=== PATIENT | female | born 1955 | race Caucasian/White ===

== ENCOUNTER → 2017-03-09 | Outpatient (CLI) | payer OTHER ==
--- NOTE | 2017-03-10 08:44 | MM ---
Reason for exam: screening (asymptomatic). Last mammogram was performed 2 years and 8 months ago. History: Patient is postmenopausal and is nulliparous. Benign stereotactic core biopsy of the left breast, June 29, 2002. Core biopsy of the left breast. 2 excisional biopsies of the left breast. Physical Findings: A clinical breast exam by your physician is recommended on an annual basis and results should be correlated with mammographic findings. MG Screening Mammo w CAD Bilateral CC and MLO view(s) were taken. Prior study comparison: June 26, 2014, bilateral MG screening mammo w CAD. June 26, 2003, bilateral diagnostic mammogram. The breast tissue is heterogeneously dense. This may lower the sensitivity of mammography. Finding: There are stable typically benign calcifications. Previous mammotome biopsy in the right breast. There is no discrete abnormality. No significant changes in finding since June 26, 2014 and June 26, 2003. ASSESSMENT: Benign, BI-RAD 2 RECOMMENDATION: Routine screening mammogram of both breasts in 1 year.
--- NOTE | 2017-03-10 13:41 | BD ---
EXAMINATION TYPE: MG DEXA axial skeleton. DATE OF EXAM: 03/09/2017 COMPARISON: 2001 CLINICAL HISTORY: vitamin d deficiency Height: 5'3 Weight: 148 FRAX RISK QUESTIONS: Alcohol (3 or more units per day): no Family History (Parent hip fracture): no Glucocorticoids (More than 3mos): no (Ex: prednisone, prednisolone, methylprednisolone, dexamethasone, and hydrocortisone). History of Fracture in Adulthood: yes Secondary Osteoporosis: 1. Type 1 Diabetes: no 2. Hyperthyroidism: no 3. Menopause before 45: yes 4. Malnutrition: no 5. Chronic liver disease: no Rheumatoid Arthritis: no Current Tobacco Use: yes RISK FACTORS HISTORY OF: Surgery Wrist (/left): When: age 12 Postmenopausal woman: MEDICATIONS: Additional Medications: Motrin, copd, Additional History: vitamin d deficiency EXAM MEASUREMENTS: Bone mineral densitometry was performed using the [employer] System. Bone mineral density as measured about the Lumbar spine is: ----- L1-L4(G/cm2): 1.084 T Score Values are as follows: ----- L2: -0.8 ----- L3: -0.6 ----- L4: -1.1 ----- L1-L4: -0.8 Bone mineral density has: Increased 2.0% since study of: 05/25/2002 Bone mineral density about the R hip (g/cm2): 0.839 Bone mineral density about the L hip (g/cm2): 0.911 T Score values are as follows: -----R Neck: -1.4 -----L Neck: -0.9 -----R Total: -1.5 -----L Total: -0.8 Bone mineral density has: Decreased -4.3% since study of: 05/25/2002 IMPRESSION: Osteopenia (T Score between -2.5 and -1 as noted by T score values: L4, Rt hip There is slightly increased risk of fracture and the patient may be considered for treatment. Re-Screen 2-5 years. NOTE: T-SCORE=SD OF THE YOUNG ADULT MEAN.
== END | disposition home or self-care (01) ==
LOC: RADMAMWWP 08:18
PROVIDERS: ATTEND Family Medicine
DX: Z12.31 Encounter for screening mammogram for malignant neoplasm of breast (principal); M85.80 Other specified disorders of bone density and structure, unspecified site
CPT/HCPCS: 77080; G0202

== ENCOUNTER → 2017-03-09 | Outpatient (CLI) | payer OTHER ==
--- NOTE | 2017-03-09 09:19 | XR ---
EXAMINATION TYPE: XR chest 2V DATE OF EXAM: 03/09/2017 COMPARISON: NONE HISTORY: COPD and tobacco abuse. Shortness of breath TECHNIQUE: Frontal and lateral views of the chest are obtained. FINDINGS: There is no focal air space opacity, pleural effusion, or pneumothorax seen. There is pulm onary hyperinflation and flattening of the diaphragms on the lateral image. The cardiac silhouette s ize is within normal limits. The osseous structures are intact. Mild degenerative changes are seen of the thoracic spine, glenohumeral joint and acromio clavicular joint. IMPRESSION: 1. No acute cardiopulmonary process. 2. Radiographic sequela of COPD.
== END | disposition home or self-care (01) ==
LOC: RADXRMAIN 09:00
PROVIDERS: ATTEND Family Medicine
DX: J44.9 Chronic obstructive pulmonary disease, unspecified (principal); Z72.0 Tobacco use
CPT/HCPCS: 71020

== ENCOUNTER → 2017-04-14 | Outpatient (CLI) | payer OTHER ==
--- NOTE | 2017-04-14 13:11 | CT ---
EXAMINATION TYPE: CT chest wo con DATE OF EXAM: 04/14/2017 COMPARISON: NONE HISTORY: Patient complains of increasing difficulty breathing. Patient has a history of asthma and CO PD. CT DLP: 499 mGycm. Automated Exposure Control for Dose Reduction was Utilized. TECHNIQUE: CT scan of the thorax is performed without IV contrast. FINDINGS: LUNGS: Moderate centrilobular pulmonary emphysematous changes are seen with architectural disruption of the secondary pulmonary lobules most prominent within the lung apices with a gradient effect for t he lung bases. Solitary right basilar bleb is noted. No focal consolidation, pleural effusion or pneu mothorax is present. Subsegmental lingular atelectasis is seen. No pulmonary mass is identified. MEDIASTINUM: Lack of IV contrast is noted to limit evaluation for mediastinal and especially hilar ad enopathy. Three-vessel coronary artery disease is moderate in degree. There are no definitive greater than 1 cm hilar or mediastinal lymph nodes. No cardiomegaly or pericardial effusion is seen. Ascen ding thoracic aorta is within normal limits of size measuring 3.4 cm. OTHER: Multilevel degenerative change of the thoracic spine is seen, mild to moderate with endplate s clerosis, intervertebral disc space narrowing, and small anterior osteophytes. IMPRESSION: 1. Moderate centrilobular pulmonary emphysema with no focal consolidation, pleural effusion or pneumo thorax. No pulmonary mass. 2. Three-vessel coronary artery atherosclerosis, moderate in degree.
== END | disposition home or self-care (01) ==
LOC: RADCTMAIN 12:39
PROVIDERS: ATTEND Internal Medicine Pulmonary Disease
DX: J43.2 Centrilobular emphysema (principal); I25.10 Atherosclerotic heart disease of native coronary artery without angina pectoris
CPT/HCPCS: 71250

== ENCOUNTER → 2018-02-09 | Outpatient (CLI) | payer OTHER ==
--- NOTE | 2018-02-10 07:52 | US ---
EXAMINATION TYPE: US pelvic limited DATE OF EXAM: 02/09/2018 COMPARISON: NONE CLINICAL HISTORY: N93.9 ABN UTERINE AND VAGINAL BLEEDING. TECHNIQUE: Transabdominal (TA Date of LMP: post menopausal EXAM MEASUREMENTS: Uterus: Surgically absent cm Endometrial Stripe: Surgically absent cm Right Ovary: Surgically absent cm Left Ovary: Surgically absent cm Patient states vaginal bleed after intercourse. 1. Uterus: Surgically absent 2. Endometrium: Surgically absent 3. Right Ovary: Surgically absent 4. Left Ovary: Surgically absent 5. Bilateral Adnexa: wnl 6. Posterior cul-de-sac: no free fluid Vaginal cuff seen and appears normal. No other abnormality noted. IMPRESSION: No discrete sonographic abnormality within the vaginal cuff. Surgical absence of the uter us and ovaries. If there is further concern enhanced MR could be performed.
== END | disposition home or self-care (01) ==
LOC: RADUSWWP 14:50
PROVIDERS: ATTEND Family Medicine
DX: N93.9 Abnormal uterine and vaginal bleeding, unspecified (principal); Z90.710 Acquired absence of both cervix and uterus; Z90.722 Acquired absence of ovaries, bilateral
CPT/HCPCS: 76857

== ENCOUNTER → 2018-03-10 | Outpatient (CLI) | payer OTHER ==
--- NOTE | 2018-03-13 10:18 | MM ---
Reason for exam: screening (asymptomatic). Last mammogram was performed 1 year ago. History: Patient is postmenopausal and is nulliparous. Benign stereotactic core biopsy of the left breast, June 29, 2002. Core biopsy of the left breast. 2 excisional biopsies of the left breast. Taking estrogen for 1 month. Taking progesterone for 1 month. Physical Findings: A clinical breast exam by your physician is recommended on an annual basis and results should be correlated with mammographic findings. MG 3D Screening Mammo W/Cad Bilateral CC and MLO view(s) were taken. Prior study comparison: March 09, 2017, bilateral MG screening mammo w CAD. June 26, 2014, bilateral MG screening mammo w CAD. The breast tissue is heterogeneously dense. This may lower the sensitivity of mammography. Stable previously sampled calcifications central left breast. No significant changes when compared with prior studies. ASSESSMENT: Benign, BI-RAD 2 RECOMMENDATION: Routine screening mammogram of both breasts in 1 year.
== END | disposition home or self-care (01) ==
LOC: RADMAMWWP 10:01
PROVIDERS: ATTEND Family Medicine
DX: Z12.31 Encounter for screening mammogram for malignant neoplasm of breast (principal)
CPT/HCPCS: 77063; 77067

== ENCOUNTER 2019-01-22 14:27 | Emergency (ER) | payer OTHER ==
[2019-01-22 15:53] VITALS: BP 126/80; PULSE 65; RESP 18; TEMP 97.6
--- NOTE | 2019-01-22 15:53 | ED ---
Skin/Abscess/FB HPI - General Chief complaint: Extremity Injury, Upper Stated complaint: Hand/FInger Injury Time Seen by Provider: 01/22/19 15:34 Source: patient, family Mode of arrival: ambulatory Limitations: no limitations - History of Present Illness Initial comments: 63-year-old female presenting today for chief complaint of right third digit pain. Patient states that she shook her hand and then heard a pop in her third right digit. Patient states there has been mild swelling at the site, no warmth no significant redness, denies fever, flu like symptoms. Patient denies limitation of ROM. Remaining ROS (-). Upon arrival patient appears well, no signs of acute distress. - Related Data Allergies Allergy/AdvReac Type Severity Reaction Status Date / Time albuterol Allergy Rash/Hives Verified 01/22/19 15:55 citric acid Allergy Swelling Verified 01/22/19 15:55 codeine Allergy Rash/Hives Verified 01/22/19 15:55 Influenza Virus Vaccines Allergy Unknown Verified 01/22/19 15:55 Penicillins Allergy Rash/Hives Verified 01/22/19 15:55 aspirin AdvReac Nausea & Verified 01/22/19 15:55 Vomiting surgical metal Allergy Rash/Hives Uncoded 01/22/19 15:55 Review of Systems ROS Statement: Those systems with pertinent positive or pertinent negative responses have been documented in the HPI. ROS Other: All systems not noted in ROS Statement are negative. 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 cyst removed from left wrist Past Psychological History: No Psychological Hx Reported Smoking Status: Current every day smoker Past Alcohol Use History: None Reported Past Drug Use History: Marijuana General Exam - General Exam Comments Initial Comments: General: The patient is awake and alert, in no distress, and does not appear acutely ill. Eye: +3 mm pupils are equal, round and reactive to light, extra-ocular movements are intact. No nystagmus. There is normal conjunctiva bilaterally. No signs of icterus. Ears, nose, mouth and throat: There are moist mucous membranes and no oral lesions. Neck: The neck is supple, there is no tenderness or JVD. Cardiovascular: There is a regular rate and rhythm. No murmur, rub or gallop is appreciated. Respiratory: Lungs are clear to auscultation, respirations are non-labored, breath sounds are equal. No wheezes, stridor, rales, or rhonchi. Musculoskeletal: Normal ROM, no tenderness. Strength 5/5. Sensation intact. Radial pulses equal bilaterally 2+. Neurological: A&O x 3. CN II-XII intact, There are no obvious motor or sensory deficits. Coordination appears grossly intact. Speech is normal. Skin: Skin is warm and dry and no rashes. Mild soft tissue welling over the MTP joints of the right third digit. No pain with range of motions the MTP DIP and PIP joints. slight tenderness to palpation of the MTP directly. No fusiform swelling of fingers, capillary refill < 2 seconds. Psychiatric: Cooperative, appropriate mood & affect, normal judgment. Limitations: no limitations Course Vital Signs 01/22/19 15:47 Temperature 97.6 F Pulse Rate 65 Respiratory 18 Rate Blood Pressure 126/80 O2 Sat by Pulse 98 Oximetry Medical Decision Making - Medical Decision Making This a 63-year-old female presenting for right hand swelling after shaking vigorously. No evidence of infection. Mild soft tissue swelling. Negative osseous injury on imaging studies. Patient was instructed to apply ice and elevate the area and monitor for redness increasing swelling fevers or flu like symptoms. Patient is to follow-up closely primary care provider or return as discussed. Patient discharged appearing well agreeable to care for discharge at this time Disposition Clinical Impression: Finger pain, Finger strain Disposition: HOME SELF-CARE Condition: Good Instructions (If sedation given, give patient instructions): Musculoskeletal Pain (ED) Additional Instructions: Please use medication as discussed. Please follow-up with family doctor in the next 2 days. If areas becomes red, increasing pain/swelling or fever/flu like symptoms, decreased range of motion, please return to ER. Please return to emergency room if the symptoms increase or worsen or for any other concerns. Is patient prescribed a controlled substance at d/c from ED?: No Referrals: Svetlana Mosley MD [Primary Care Provider] - 1-2 days Time of Disposition: 16:48
--- NOTE | 2019-01-22 16:29 | XR ---
EXAMINATION TYPE: XR hand complete RT DATE OF EXAM: 01/22/2019 COMPARISON: None HISTORY: Pain third metacarpal phalangeal joint TECHNIQUE: Three-view right hand FINDINGS: Joint spaces appear preserved. There is soft tissue swelling over the metacarpal phalangeal joint spaces dorsally. No acute fractures are evident. IMPRESSION: 1. Soft tissue swelling over the dorsal metacarpal phalangeal joint spaces.
--- NOTE | 2019-01-25 01:39 | CDI ---
Documentation Clarification OP Dear Charity ADKINS, LATRICE Please specify the site of finger strain(extensor or flexor) to code the appropriate ICD. Thank you, Jolly Robbins Diagnostic Technologist If you have any question, Please contact architectural project manager at [phone] [facility]
== END 2019-01-22 17:05 | disposition home or self-care (01) ==
LOC: EC 14:27
DX: S56.113A Strain of flexor muscle, fascia and tendon of right middle finger at forearm level, initial encounter (principal); F17.200 Nicotine dependence, unspecified, uncomplicated; Z88.0 Allergy status to penicillin; Z88.7 Allergy status to serum and vaccine; Z88.5 Allergy status to narcotic agent; Z88.8 Allergy status to other drugs, medicaments and biological substances; Z88.6 Allergy status to analgesic agent; Z91.048 Other nonmedicinal substance allergy status; X50.9XXA Other and unspecified overexertion or strenuous movements or postures, initial encounter
CPT/HCPCS: 99283

== ENCOUNTER → 2019-07-04 | Outpatient (CLI) | payer OTHER | END | disposition home or self-care (01) | LOC: RADMRIMAIN 11:05 | PROVIDERS: ATTEND Family Medicine | DX: Z53.9 Procedure and treatment not carried out, unspecified reason (principal) ==

== ENCOUNTER → 2020-05-14 | Outpatient (CLI) | payer MEDICARE ==
--- NOTE | 2020-05-16 11:07 | MR ---
EXAMINATION TYPE: MR shoulder LT wo con DATE OF EXAM: 05/14/2020 COMPARISON: Plain film 05/31/2018 HISTORY: Left shoulder pain TECHNIQUE: Multiplanar, multisequence imaging of the left shoulder is performed without contrast. FINDINGS: Rotator Cuff: Intact Acromioclavicular Joint: There is arthropathy change present, spurring causes some mass effect on the musculotendinous junction of supraspinatus. There is a distal acromial spur. Glenohumeral Joint: There is marked arthropathy change. Remodeling of the bony glenoid is present wit h articular cartilage loss, marginal spurring, subchondral geode formation is suspected Labrum: Some increased signal present within the posterior labrum be related to degenerative change, difficult to exclude labral tear inferiorly, there is some irregularity suspected, coronal image #16, 15 Biceps Tendon: The long head of biceps is in normal location within bicipital groove. Some fluid sign al is present along the long head of biceps tendon Bone marrow signal: Pseudocysts are present within the humeral head. Reactive marrow signal changes a re present within the bony glenoid. Other: There is a joint effusion present. Fluid signal also present along the subscapularis musculote ndinous junction level IMPRESSION: Osteoarthritis as described.
== END | disposition home or self-care (01) ==
LOC: RADMRIMAIN 19:34
PROVIDERS: ATTEND Family Medicine
DX: M19.012 Primary osteoarthritis, left shoulder (principal)

== ENCOUNTER → 2020-05-22 | Outpatient (CLI) | payer MEDICARE ==
[2020-05-22 08:26] LABS: HCT 41.2 % (34.0-46.0); HGB 13.9 gm/dL (11.4-16.0); MCH 31.2 pg (25.0-35.0); MCHC 33.8 g/dL (31.0-37.0); MCV 92.3 fL (80.0-100.0); Mean Platelet Volume 7.4; Platelet Count 337 k/uL (150-450); RBC 4.47 m/uL (3.80-5.40); RDW 12.3 % (11.5-15.5); WBC 8.7 k/uL (3.8-10.6)
[2020-05-22 08:31] LABS: Appearance,Urine Clear (Clear); Bilirubin,Urine Negative (Negative); Blood,Urine Negative (Negative); Color,Urine Yellow; Glucose,Urine (UA) Negative (Negative); Ketones,Urine Negative (Negative); Leukocyte Esterase,Urine Negative (Negative); Nitrite,Urine Negative (Negative); PH, Urine 5.5 (5.0-8.0); Protein,Urine Negative (Negative); Specific Gravity,Urine 1.017 (1.001-1.035); Urobilinogen,Urine <2.0 mg/dL (<2.0)
[2020-05-22 08:33] LABS: INR 0.9 (<1.2); Partial Thromboplastin Time 24.3 sec (22.0-30.0); Prothrombin Time 9.3 sec (9.0-12.0)
[2020-05-22 08:36] LABS: Albumin 3.8 g/dL (3.5-5.0); Calcium 9.3 mg/dL (8.4-10.2); Potassium 3.8 mmol/L (3.5-5.1); Total Bilirubin 0.4 mg/dL (0.2-1.3); Total Protein 6.2 g/dL (6.3-8.2)
== END | disposition home or self-care (01) ==
LOC: LABPAT 07:30
PROVIDERS: ATTEND Orthopaedic Surgery Sports Medicine
DX: Z01.818 Encounter for other preprocedural examination (principal); Z01.812 Encounter for preprocedural laboratory examination; Z79.01 Long term (current) use of anticoagulants
CPT/HCPCS: 36415; 80053; 81003; 85027; 85610; 85730; 87070; 93005

== ENCOUNTER → 2020-05-22 | Outpatient (CLI) | payer MEDICARE ==
--- NOTE | 2020-05-22 09:06 | CT ---
EXAMINATION TYPE: CT shoulder LT wo con DATE OF EXAM: 05/22/2020 COMPARISON: MRI 05/14/2020 HISTORY: 64-year-old female chronic pain. Injury 10 yrs ago TECHNIQUE: Contiguous axial scanning of the left shoulder without IV contrast. Coronal and sagittal r econstructions performed. CT DLP: 272.2 mGycm Automated exposure control for dose reduction was used. FINDINGS: Moderate centrilobular emphysema. Moderate to severe degenerative change at the AC joint with joint space narrowing and marginal spurri ng. Severe degenerative change at the glenohumeral joint with bony remodeling of the humeral head, margin al spurring, subchondral sclerosis within the glenoid. There is some biconcave configuration to the glenoid. Along the anterior half, there is neutral gleno id version but with a prominent anterior spur projecting laterally. Along the posterior half of the g lenoid, there is presently 10 degrees of glenoid retroversion. Mild diffuse thinning of glenoid bone stock. There is some superior and posterior subluxation of the glenohumeral joint but no atrophy of the rota tor cuff musculature identified. IMPRESSION: 1. SEVERE LEFT GLENOHUMERAL JOINT OA WITH MILD BONY REMODELING OF THE HUMERAL HEAD AND PROMINENT ZABRINA INAL SPURRING. 2. BICONCAVE CONFIGURATION TO THE GLENOID. THE ANTERIOR HALF MAINTAINS A NEUTRAL GLENOID VERSION BUT HAS A PROMINENT ANTERIOR SPUR PROJECTING LATERALLY, POSSIBLY SEQUELA OF PRIOR HEALED FRACTURE. THE PO STERIOR HALF SHOWS 10 DEGREES OF GLENOID RETROVERSION. OVERALL MILD THINNING OF THE GLENOID BONE STOC K. 3. POSTERIOR and SUPERIOR JOINT SUBLUXATION THOUGH WITH PRESERVED ROTATOR CUFF MUSCLE BULK. 4. MODERATE TO SEVERE AC JOINT OA.
== END | disposition home or self-care (01) ==
LOC: RADCTMAIN 06:32
PROVIDERS: ATTEND Orthopaedic Surgery Sports Medicine
DX: M19.012 Primary osteoarthritis, left shoulder (principal); M25.712 Osteophyte, left shoulder; M25.812 Other specified joint disorders, left shoulder; S43.002A Unspecified subluxation of left shoulder joint, initial encounter

== ENCOUNTER 2020-06-19 09:49 | Inpatient (IN) | payer MEDICARE ==
[2020-06-16 11:13] VITALS: BMI 26.5
[~2020-06-19 09:49] MED LIST: ACETAMINOPHEN TAB 500 MG TAB PO PRN; GABAPENTIN 300 MG CAP PO PRN; MELOXICAM 7.5 MG TAB PO PRN; ONDANSETRON 4 MG/2 ML VIAL IVP PRN; TRANEXAMIC ACID 1,000 MG in SODIUM CHLORIDE 0.9% 100 ML IVPB PRN
[2020-06-19] MEDS: LACTATED RINGERS 1,000 ML IV SCH ×3 (10:37→21:29)
[2020-06-19] MEDS ORDERED: LIDOCAINE 1% (10MG/ML) FOR IV START INTRADERMA ONE (10:37)
[2020-06-19] MEDS: fentaNYL (PF) 50 MCG/ML 2 ML AMP IV PRN ×2 (10:56→11:02)
[2020-06-19] MEDS: MIDAZOLAM 2 MG/2 ML VIAL IV PRN ×2 (10:56→11:01)
[2020-06-19] MEDS ORDERED: PROCHLORPERAZINE SUPPOSITORY 25 MG SUPP RECTAL PRN (11:22)
[2020-06-19] MEDS ORDERED: ONDANSETRON 4 MG/2 ML VIAL IVP PRN (11:22)
[2020-06-19] MEDS ORDERED: METOCLOPRAMIDE 5 MG/ML 2 ML VIAL IVP PRN (11:22)
[2020-06-19] MEDS ORDERED: HYDROmorphone 0.5 MG/0.5 ML SYRINGE IVP PRN (11:22)
[2020-06-19] MEDS ORDERED: hydrOXYzine pamoate 25 MG CAP PO PRN (11:22)
[2020-06-19] MEDS ORDERED: diphenhydrAMINE 25 MG CAP PO PRN (11:22)
[2020-06-19] MEDS ORDERED: SENNOSIDES-DOCUSATE SODIUM 1 EACH TAB PO PRN (11:22)
[2020-06-19] MEDS ORDERED: HYDROmorphone 0.2 MG/1 ML SYRINGE IVP PRN (11:22)
[2020-06-19] MEDS ORDERED: HYDROmorphone 1 MG/ML 1 ML SYRINGE IVP PRN (11:22)
[2020-06-19] MEDS ORDERED: HYDROcodone/APAP 7.5-325MG 1 EACH TAB PO PRN (11:28)
[2020-06-19] MEDS ORDERED: SUCCINYLCHOLINE CHLORIDE 100 MG/5 ML SYR IV ONE (11:39)
[2020-06-19] MEDS ORDERED: ROPIVACAINE 5 MG/ML 30 ML VIAL ONE (11:39)
[2020-06-19] MEDS ORDERED: fentaNYL (PF) 50 MCG/ML 2 ML AMP ONE (11:39)
[2020-06-19] MEDS ORDERED: NEOSTIGMINE 1 MG/ML 10 ML VIAL ONE (11:39)
[2020-06-19] MEDS ORDERED: PROPOFOL 10 MG/ML 20 ML VIAL IV ONE (11:39)
[2020-06-19] MEDS ORDERED: MIDAZOLAM 2 MG/2 ML VIAL ONE (11:39)
[2020-06-19] MEDS ORDERED: ROCURONIUM 10 MG/ML (10 ML VIAL) IV ONE (11:39)
[2020-06-19] MEDS ORDERED: GLYCOPYRROLATE 0.2 MG/ML 2 ML VIAL ONE (11:39)
[2020-06-19] MEDS ORDERED: PHENYLEPHRINE-0.9% NACL SYG 1 MG/10 ML SYRINGE ONE (11:39)
[2020-06-19] MEDS ORDERED: ceFAZolin 1,000 MG in SODIUM CHLORIDE 0.9% 1,000 ML IRRIGATION ONE (11:45)
[2020-06-19] MEDS ORDERED: VANCOMYCIN 1,000 MG VIAL MISCELLANE ONE (12:31)
[2020-06-19] MEDS ORDERED: LACTATED RINGERS 1,000 ML IV ONE (12:56)
--- NOTE | 2020-06-19 13:05 | P.ANPRN ---
Procedure Note - Anesthesia - Nerve Block Performed Left Interscalene Time Out Performed: Yes (10:55) Date of Procedure: 06/19/20 Procedure Start Time: :55 Procedure Stop Time: 11:08 Location of Patient: PreOp Indication: Acute Post-Operative Pain, Requested by Surgeon (Dr Marquez) Sedation Type: Sedate with meaningful contact maintained Preparation: Sterile Prep Position: Supine Catheter: None Needle Types: Pajunk Needle Gauge: Other (see comment) (22g) Ultrasound used to visualize needle placement: Yes Ultrasound used to observe medication spread: Yes Injectate: 0.5% Ropivacaine (see comment for volume) (20cc) Blood Aspirated: No Pain Paresthesia on Injection Noted: No Resistance on Injection: Normal Image Stored and Saved: Yes Events: Uneventful and Well Tolerated
--- NOTE | 2020-06-19 13:42 | XR ---
EXAMINATION TYPE: XR shoulder limited LT DATE OF EXAM: 06/19/2020 COMPARISON: CT left shoulder 12/05/2019 HISTORY: Left shoulder chronic pain, history of remote injury. TECHNIQUE: Single view of left shoulder is obtained immediately postoperatively. FINDINGS: Metallic hardware from total left shoulder arthroplasty is now present. Position satisfacto ry. [place] osseous structures are demineralized. Surrounding subcutaneous gas noted. Percutaneous shae inage catheter is present. Left basilar atelectatic change incidentally noted. IMPRESSION: As above.
[2020-06-19] MEDS ORDERED: diphenhydrAMINE 50 MG/ML 1 ML VIAL IVP ONE (14:21)
[2020-06-19] MEDS ORDERED: ACETAMINOPHEN TAB 500 MG TAB PO PRN (18:00)
[2020-06-19] MEDS ORDERED: diazePAM 5 MG TAB PO PRN (18:00)
[2020-06-19] MEDS ORDERED: diphenhydrAMINE 25 MG CAP PO SCH (21:00)
[2020-06-19] MEDS ORDERED: TEMAZEPAM 15 MG CAP PO PRN (21:00)
[2020-06-19] MEDS ORDERED: MONTELUKAST 10 MG TAB PO SCH (21:00)
[2020-06-19] MEDS: NICOTINE POLACRILEX 2 MG GUM BUCCAL PRN (21:23)
--- NOTE | 2020-06-20 00:41 | OP ---
OPERATIVE REPORT DATE OF PROCEDURE: 06/19/2020. SURGEON: Sandro Marquez MD. EMBEDDED HARDWARE ENGINEER: Ankur POLLARD. PREOPERATIVE DIAGNOSIS: Left shoulder osteoarthrosis. POSTOPERATIVE DIAGNOSIS: 1. Left shoulder osteoarthrosis. 2. Left shoulder full-thickness rotator cuff tear. OPERATION: Left reverse total shoulder arthroplasty. ANESTHESIA: General, endotracheal. ESTIMATED BLOOD LOSS: 100 mL. DRAINS: One deep drain. COMPLICATIONS: None apparent. DISPOSITION: Postanesthesia care unit. INDICATIONS: Lawanda Berkowitz is a very pleasant 64-year-old female with longstanding left shoulder pain. Workup including x-rays revealed advanced osteoarthrosis of the left shoulder. At this point, it is felt that she has failed conservative management and would like to proceed with operative intervention. The risks of procedure were discussed with her in detail. These risks included, but were not limited to risk of infection, nerve damage, bleeding, pain, instability in the shoulder, loosening of the implants and deep infection. There is also small risk of deep vein thrombosis which could lead to fatal pulmonary embolism. The patient understood the risks. All of her questions were answered to her satisfaction. An appropriate informed consent was obtained. DESCRIPTION OF THE PROCEDURE: Patient identified in the preoperative holding area. Surgical sites marked by both the patient and myself. She was given 2 grams of Ancef IV for prophylactic purposes. She was then transferred to the operative suite where she was placed supine on the operating room table. General anesthetic was then administered, dosed per the anesthesia department without apparent complication. Examination under anesthesia was then performed of the left shoulder. She had full passive elevation 120 degrees. External rotation at the side was to 20 degrees. The patient's left upper extremity was then prepped and draped in usual sterile fashion. Standard surgical pause was undertaken to ensure that we were operating on the correct site and that appropriate preoperative antibiotics had been given. All staff in the room agreement were in agreement and we proceeded. The acromion AC joint, clavicle and coracoid were marked surgical pen. A planned incision starting at the level of the clavicle and extending distally over the deltopectoral interval approximately 1 cm lateral to the coracoid was marked with surgical pen. The incision was then made with a 10 blade scalpel. Dissection was carried down sharply to the deltoid fascia. The deltopectoral interval was identified at the level of the clavicle. A small band retractor was then placed onto the proximal deltoid. I then released the deltoid fascia on the lateral aspect of the cephalic vein. The vein was marked. The vein was left in its bed medially. The cephalic vein was protected throughout the entire case. I then identified the clavipectoral fascia. This was incised proximally to the level of the coracoacromial ligament. The coracoacromial ligament was left intact. I then used my finger to spread the interval between the conjoint tendon and the subscapularis. I felt for the axillary nerve which was readily palpable. I then cleared the subacromial and subdeltoid spaces of bursal and scar tissue. I then utilized a Gama retractor to hold the deltoid and expose the humeral head. I then proceeded with release of the subscapularis, anterior inferior shoulder capsule. The rotator cuff was inspected. There was a full-thickness tear of the supraspinatus. The rotator interval was identified. The course of the biceps tendon was also identified. I then released the rotator interval. It was released at the base of the coracoid and then out laterally. The subscapularis and the capsule were released intratendinously. The subscapularis and capsule release extended distally in a lazy-S fashion approximately 1 cm medial to the biceps tendon. I then continued to release the capsule along the inferior neck in a vertical fashion to approximately the 6 o'clock position. Great care was taken to ensure the capsule was always visualized as it was released as to avoid injuring the axillary nerve. I then brought the [employer] [facility] director with the arm externally rotated and abducted. I continued to release the capsule inferomedially to the 4 o'clock position. The inferior osteophytes were now removed as well. This was done with a rongeur. I then proceeded with preparation of the humerus. I removed all the goat's zuleta osteophytes. I then removed the subchondral plate from superior aspect of the humeral head utilizing a large rongeur. I then utilized a starting reamer to gain access to the humeral canal. This was 1 cm medial to the rotator cuff insertion and 1 cm posterior to the bicipital groove. I then prepared the humeral canal with hand reaming. I started with a 6 mm reamer and increasing incrementally until firm resistance was encountered. This was at 11 mm. The reamer handle was then left in place. I then utilized a humeral resection guide set at 30 degrees of retrotorsion. The cutting block was then set approximately 1-2 mm above the insertion of the rotator cuff. I then proceed to osteotomized the head with an oscillating saw. I removed the resection guide and then completed the osteotomy. I then proceeded with trial stem placement. Trial size 11 was then broached in the canal starting with a 6 mm broach up to an 11 mm broach. The 11 mm trial broach was then left in place. At this point, I did release the biceps tendon. This was tenotomized at the level of superior labrum. A bone hook was then used to pull the humerus out laterally. I inspected the joint for any loose bodies. The condition of the cuff was again inspected. There was a full-thickness tear of the rotator cuff. I made a decision at this point in time to proceed with a reverse total shoulder arthroplasty. The Bhattman retractor was then placed on the posterior glenoid rim. The arm was placed in approximately 70-80 degrees of abduction and in slight flexion on a Trinh stand. I then proceeded to remove the hypertrophic labrum to definitively identify the actual glenoid. I then utilized a mini base plate starting guide. The pin was inserted in the central aspect of the glenoid with approximately 10 degrees of inferior tilt. I then reamed utilizing the mini base plate reamer. This was taken down and minimal reaming as possible was done as to preserve subchondral bone stock in the glenoid. I then inserted the mini base plate. I placed a 25 mm central screw. This screw had excellent purchase in bone and I was able to rotate the scapula through the screwdriver when it was fully seated. I then placed the peripheral locking screws. The superior screw was 15 mm. Inferior screw was 25 mm. The posterior screw was 15 mm. I did not fill the anterior screw hole. I then opened a 36 mm glenosphere. This was offset inferiorly. It was then impacted onto the dried Benitez taper of the mini base plate. The glenosphere had been securely seated. I then proceeded to trial. I utilized a standard base plate and a standard poly. This was a fairly difficult reduction. The shoulder was very stable. There was no anterior or posterior impingement with range of motion. The conjoint tendon was of appropriate tension. The shoulder was then redislocated. The wound was thoroughly irrigated with sterile saline solution with antibiotic added. I had the provider relations representative open a real 11 Biomet mini stem, a standard base plate and a standard polyethylene. The stem was then impacted in the humeral canal and 30 degrees of retrotorsion. The Benitez taper was dried. The poly was clicked onto the base plate on the back table and then was impacted on the dry Benitez taper of the humeral stem. The shoulder was then reduced. Again it was fairly difficult reduction. It was very stable throughout a full range of motion. There was no impingement noted. Subscapularis was quite attenuated. I did not repair the subscapularis. The wound was then thoroughly irrigated with sterile saline solution with antibiotic added. The axillary nerve was felt for and was readily palpable and preserved. A deep drain was then brought out superiorly away from the incision. Approximately 500 mg of vancomycin powder was placed deep into the wound. The deltopectoral interval was then closed with 0 Vicryl interrupted suture. Again the subcutaneous tissue was thoroughly irrigated with sterile saline solution with antibiotic added. The remaining 500 mg of vancomycin powder was then placed subcutaneously. The subcutaneous tissue was then closed with 2-0 Vicryl interrupted suture. The skin was closed with a running 3-0 Quill suture. Dermabond was applied to the incision. Sterile compressive dressing was then applied. The patient's left upper extremity placed into a standard sling. All sponge and needle counts were deemed correct prior to closure. The patient tolerated procedure without apparent complication. She was transferred to the recovery room in stable condition. MMODL / IJN: [id number] /
[2020-06-20] MEDS: IPRATROPIUM-ALBUTEROL 3 ML NEB INHALATION SCH ×3 (01:37→12:00)
[2020-06-20] MEDS: HYDROcodone/APAP 7.5-325MG 1 EACH TAB PO PRN ×3 (01:39→16:14)
[2020-06-20] MEDS: LACTATED RINGERS 1,000 ML IV SCH ×2 (04:16→10:52)
[2020-06-20] MEDS ORDERED: IBUPROFEN 800 MG TAB PO PRN (06:00)
[2020-06-20] MEDS: NICOTINE POLACRILEX 2 MG GUM BUCCAL PRN (08:27)
[2020-06-20 08:33] VITALS: BP 111/71; PULSE 80; RESP 17; TEMP 99.5
[2020-06-20 08:40] LABS: Basophils % (A) 0 %; Eosinophils # (A) 0.1 k/uL (0-0.7); Eosinophils % (A) 1 %; HCT 38.1 % (34.0-46.0); HGB 12.9 gm/dL (11.4-16.0); Lymphocytes # (A) 2.1 k/uL (1.0-4.8); Lymphocytes % (A) 22 %; MCH 30.8 pg (25.0-35.0); MCHC 33.9 g/dL (31.0-37.0); MCV 90.7 fL (80.0-100.0); Mean Platelet Volume 7.3; Monocytes # (A) 0.6 k/uL (0-1.0); Monocytes % (A) 6 %; Neutrophils % (A) 71 %; Platelet Count 321 k/uL (150-450); RDW 12.9 % (11.5-15.5); WBC 9.9 k/uL (3.8-10.6)
[2020-06-20] MEDS ORDERED: ASCORBIC ACID 500 MG TAB PO SCH (09:00)
[2020-06-20] MEDS ORDERED: LORATADINE-PSEUDOEPH 5-120 MG 1 EACH TAB.ER.12H PO SCH (09:00)
[2020-06-20] MEDS ORDERED: LISINOPRIL-HCTZ 10-12.5 MG 1 EACH TAB PO SCH (09:00)
--- NOTE | 2020-06-20 14:02 | P.HPIM ---
History of Present Illness H&P Date: 06/20/20 Patient is a 64-year-old female patient of Dr. Mosley, who was admitted to [facility] by Dr. Sandro Marquez and underwent left reverse total shoulder arthroplasty, patient was admitted to surgical floor postprocedure, medical consultation was requested while hospitalized. Patient has a known history of osteoarthritis, rotator cuff tear, COPD, hypertension, and hyperlipidemia. On review of systems patient is alert and oriented 3 in no distress is complaining of pain in the surgical site otherwise she denies any complaints there is no fever or chills no headache or dizziness no chest pain no shortness of breath no cough no nausea or vomiting no abdominal pain no diarrhea no blood in the stools no burning with urination no frequency or urgency and no hematuria. 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 cyst removed from left wrist, benign tumor removed left eye, 5 tumors removed left breast(lumpectomy), abdominal surgeries to removed 8 tumors and left fallopian tube Past Anesthesia/Blood Transfusion Reactions: No Reported Reaction Past Psychological History: Anxiety Smoking Status: Current every day smoker Past Alcohol Use History: None Reported Additional Past Alcohol Use History / Comment(s): smokes < 1 PPD, has smoked for 50 yrs Past Drug Use History: Marijuana Additional Drug Use History / Comment(s): daily use - Past Family History Father Family Medical History: Cancer Additional Family Medical History / Comment(s): lung Medications and Allergies Home Medications Medication Instructions Recorded Confirmed Type Acetaminophen [Acetaminophen 8 1,300 mg PO BID PRN 06/16/20 06/19/20 History Hour] Ergocalciferol [Vitamin D2] 50,000 unit PO QMONTHLY 06/16/20 06/19/20 History Ibuprofen [Motrin] 800 mg PO BID PRN 06/16/20 06/19/20 History Ipratropium/Albuterol Sulfate 1 puff INHALATION QID 06/16/20 06/19/20 History [Combivent Respimat Inhaler] Lisinopril-Hctz 10-12.5 mg 1 tab PO DAILY 06/16/20 06/19/20 History [Zestoretic 10-12.5] Loratadine-Pseudoeph 10-240 mg 1 tab PO DAILY 06/16/20 06/19/20 History [Claritin-D 24 Hour] Montelukast [Singulair] 10 mg PO HS 06/16/20 06/19/20 History Vitamin C/Biotin [Hair, Skin and 2 tab PO DAILY 06/16/20 06/19/20 History Nails] diazePAM [Valium] 5 mg PO QID PRN 06/16/20 06/19/20 History diphenhydrAMINE HCL [Benadryl] 25 mg PO HS 06/16/20 06/19/20 History estradioL [Estrace] 0.5 mg VAGINAL SUWE 06/16/20 06/19/20 History Doxycycline Hyclate 100 mg PO BID #10 tab 06/19/20 Rx Docusate [Colace] 100 mg PO BID #60 capsule 06/20/20 Rx traMADol HCL [Ultram] 50 mg PO Q4HR PRN #42 tab 06/20/20 Rx Allergies Allergy/AdvReac Type Severity Reaction Status Date / Time Penicillins Allergy Severe Vomiting Verified 06/19/20 10:16 albuterol Allergy Rapid Verified 06/19/20 10:16 Heart Rate citric acid Allergy Swelling Verified 06/19/20 10:16 codeine Allergy Rash/Hives/ Verified 06/19/20 10:16 vomiting silver Allergy Unknown Verified 06/19/20 10:16 aspirin AdvReac Nausea & Verified 06/19/20 10:16 Vomiting dial soap Allergy Severe Rash/Hives Uncoded 06/19/20 10:16 fragrance Allergy Severe Rash/Hives Uncoded 06/19/20 10:16 surgical metal Allergy Rash/Hives Uncoded 06/19/20 10:16 Physical Exam Vitals: Vital Signs Temp Pulse Pulse Resp BP Pulse Ox 06/20/20 08:00 99.5 F 80 17 111/71 94 L 06/20/20 01:33 99.8 F H 98 16 117/69 92 L 06/19/20 19:17 98.9 F 66 18 110/70 94 L 06/19/20 19:09 18 06/19/20 17:14 98.2 F 77 17 128/75 91 L 06/19/20 16:00 62 18 100/66 99 06/19/20 15:31 62 18 104/59 98 06/19/20 15:00 75 18 121/58 97 06/19/20 14:31 63 18 103/65 98 06/19/20 14:15 61 18 90/50 92 L 06/19/20 14:00 55 L 16 88/55 97 06/19/20 13:45 50 L 16 92/55 98 06/19/20 13:22 97.0 F L 62 10 L 98/54 96 Intake and Output 06/19/20 06/20/20 06/20/20 22:59 06:59 14:59 Intake Total 500 Output Total 120 120 Balance 500 -120 -120 Intake: IV 500 Output: Drainage 120 120 Left Shoulder 120 120 Other: Voiding Method Toilet Toilet # Voids 3 3 Weight 68 kg In general patient is alert and oriented 3 in no apparent distress HEENT head normocephalic and atraumatic Neck is supple no JVD no goiter no lymphadenopathy Chest exam reveals a few scattered rhonchi no wheezing Cardiac exam reveals regular heart sounds S1 and S2 no gallops no murmurs Abdomen is soft nontender no organomegaly with normal bowel sounds Extremity exam reveals no edema no cyanosis or clubbing Neurological examination reveals no gross focal deficit Results CBC & Chem 7: 06/20/20 07:23 Thrombosis Risk Factor Assmnt - Choose All That Apply Any of the Below Risk Factors Present?: Yes Each Factor Represents 1 point: Obesity (BMI >25) Other Risk Factors: Yes Each Risk Factor Represents 2 Points: Age 61-74 years Thrombosis Risk Factor Assessment Total Risk Factor Score: 3 Thrombosis Risk Factor Assessment Level: Moderate Risk Assessment and Plan Plan: 1. Left shoulder osteoarthritis and rotator cuff tear status post left reverse total shoulder arthroplasty 2. Underlying history of hypertension 3. Underlying history of hyperlipidemia 4. Underlying history of COPD 5. Underlying history of tobacco use Patient was seen and examined during this admission, home medications reviewed and reordered Patient was counseled to quit smoking Will follow during this admission for medical management
--- NOTE | 2020-06-20 16:09 | P.DS ---
Providers Date of admission: 06/19/20 09:49 Expected date of discharge: 06/20/20 Attending physician: Sandro Marquez Consults: 06/19/20 11:22 Consult Physician Routine Consulting Provider: Rivas Watkins Consult Reason/Comments: post op med management Do you want consulting provider notified?: Yes Primary care physician: Svetlana Mosley - Discharge Diagnosis(es) (1) Osteoarthritis of left shoulder Patient was admitted to the OR on 06/19/2010/05/2019 to undergo a left total shoulder arthroplasty. She had failed conservative measures as an outpatient and desired to proceed with elective surgery after given informed consent. She underwent the above procedure which she tolerated well without complication. Postoperative hospital course has remained without complication. On day of discharge she is afebrile, vital signs stable, labs within acceptable ranges, tolerating by mouth meds and diet, voiding without difficulty, positive flatus, denies abdominal pain or calf pain, pain is controlled on oral pain medication and has no new complaints. Wound is benign, neurovascular status is intact, calves are soft and nontender, abdomen soft and nontender. Review of systems is negative for numbness, tingling, fever, chills, chest pain, shortness of breath, nausea, vomiting, dizziness, headaches, slurred speech or other. Current Visit: Yes Status: Acute Procedures: Left TSA Patient Condition at Discharge: Good Plan - Discharge Summary Discharge Rx Participant: No New Discharge Prescriptions: New Doxycycline Hyclate 100 mg PO BID #10 tab Docusate [Colace] 100 mg PO BID #60 capsule traMADol HCL [Ultram] 50 mg PO Q4HR PRN #42 tab PRN Reason: Pain HYDROcodone/APAP 7.5-325MG [[place] 7.5-325] 1 - 2 each PO Q6HR PRN #42 tab PRN Reason: Pain No Action Ipratropium/Albuterol Sulfate [Combivent Respimat Inhaler] 1 puff INHALATION QID estradioL [Estrace] 0.5 mg VAGINAL SUWE diazePAM [Valium] 5 mg PO QID PRN PRN Reason: Anxiety diphenhydrAMINE HCL [Benadryl] 25 mg PO HS Vitamin C/Biotin [Hair, Skin and Nails] 2 tab PO DAILY Montelukast [Singulair] 10 mg PO HS Ergocalciferol [Vitamin D2] 50,000 unit PO QMONTHLY Loratadine-Pseudoeph 10-240 mg [Claritin-D 24 Hour] 1 tab PO DAILY Lisinopril-Hctz 10-12.5 mg [Zestoretic 10-12.5] 1 tab PO DAILY Ibuprofen [Motrin] 800 mg PO BID PRN PRN Reason: Pain Acetaminophen [Acetaminophen 8 Hour] 1,300 mg PO BID PRN PRN Reason: Pain Discharge Medication List Acetaminophen [Acetaminophen 8 Hour] 1,300 mg PO BID PRN 06/16/20 [History] Ergocalciferol [Vitamin D2] 50,000 unit PO QMONTHLY 06/16/20 [History] Ibuprofen [Motrin] 800 mg PO BID PRN 06/16/20 [History] Ipratropium/Albuterol Sulfate [Combivent Respimat Inhaler] 1 puff INHALATION QID 06/16/20 [History] Lisinopril-Hctz 10-12.5 mg [Zestoretic 10-12.5] 1 tab PO DAILY 06/16/20 [History] Loratadine-Pseudoeph 10-240 mg [Claritin-D 24 Hour] 1 tab PO DAILY 06/16/20 [History] Montelukast [Singulair] 10 mg PO HS 06/16/20 [History] Vitamin C/Biotin [Hair, Skin and Nails] 2 tab PO DAILY 06/16/20 [History] diazePAM [Valium] 5 mg PO QID PRN 06/16/20 [History] diphenhydrAMINE HCL [Benadryl] 25 mg PO HS 06/16/20 [History] estradioL [Estrace] 0.5 mg VAGINAL SUWE 06/16/20 [History] Doxycycline Hyclate 100 mg PO BID #10 tab 06/19/20 [Rx] Docusate [Colace] 100 mg PO BID #60 capsule 06/20/20 [Rx] HYDROcodone/APAP 7.5-325MG [[place] 7.5-325] 1 - 2 each PO Q6HR PRN #42 tab 06/20/20 [Rx] traMADol HCL [Ultram] 50 mg PO Q4HR PRN #42 tab 06/20/20 [Rx] Follow up Appointment(s)/Referral(s): Svetlana Mosley MD [Primary Care Provider] - 06/26/20 11:15 am Sandro Marquez MD [STAFF PHYSICIAN] - 07/01/20 1:30 pm Patient Instructions/Handouts: Shoulder Arthroplasty (DC) Activity/Diet/Wound Care/Special Instructions: Keep wound clean and dry Take meds as directed Follow-up with Dr. Marquez in office non Weight bear, maintain sling May shower in 3 days if no bleeding Discharge Disposition: HOME WITH HOME HEALTH SERVICES
[2020-07-17] MEDS ORDERED: ERGOCALCIFEROL 50,000 UNIT CAP PO SCH (09:00)
== END 2020-06-20 16:35 | disposition home or self-care (01) | DRG 483 ==
LOC: 2ORMAIN 09:49 → 4SSUR 16:46
PROVIDERS: ADMIT Orthopaedic Surgery Sports Medicine; ATTEND Orthopaedic Surgery Sports Medicine
PROC: 0RRK00Z Replacement of Left Shoulder Joint with Reverse Ball and Socket Synthetic Substitute, Open Approach (ICD-10-PCS; principal; 2020-06-19 11:40)
DX: M19.012 Primary osteoarthritis, left shoulder (principal); E78.5 Hyperlipidemia, unspecified; J43.9 Emphysema, unspecified; M75.122 Complete rotator cuff tear or rupture of left shoulder, not specified as traumatic; I10 Essential (primary) hypertension; F41.9 Anxiety disorder, unspecified; F17.210 Nicotine dependence, cigarettes, uncomplicated; Z71.6 Tobacco abuse counseling; Z79.890 Hormone replacement therapy; Z79.899 Other long term (current) drug therapy; Z97.3 Presence of spectacles and contact lenses; Z90.710 Acquired absence of both cervix and uterus; Z87.42 Personal history of other diseases of the female genital tract; Z90.89 Acquired absence of other organs; Z87.01 Personal history of pneumonia (recurrent); Z90.49 Acquired absence of other specified parts of digestive tract; Z87.19 Personal history of other diseases of the digestive system; Z98.890 Other specified postprocedural states; Z88.5 Allergy status to narcotic agent; Z88.8 Allergy status to other drugs, medicaments and biological substances; Z91.048 Other nonmedicinal substance allergy status; Z88.0 Allergy status to penicillin; Z88.2 Allergy status to sulfonamides
CPT/HCPCS: 64415; 76942; 85025; 88300

== ENCOUNTER → 2020-07-21 | Outpatient (CLI) | payer MEDICARE ==
--- NOTE | 2020-07-21 13:20 | BD ---
EXAMINATION TYPE: Axial Bone Density DATE OF EXAM: 07/21/2020 COMPARISON: 03/09/2017 CLINICAL HISTORY: 64-year-old female postmenopausal screening Height: 5 FT 2 1/5 IN Weight: 148 FRAX RISK QUESTIONS: Alcohol (3 or more units per day): NO Family History (Parent hip fracture): NO Glucocorticoids (More than 3mos): NO (Ex: prednisone, prednisolone, methylprednisolone, dexamethasone, and hydrocortisone). History of Fracture in Adulthood: YES Secondary Osteoporosis: 1. Type 1 Diabetes: NO 2. Hyperthyroidism: NO 3. Menopause before 45: YES 4. Malnutrition: NO 5. Chronic liver disease: NO Rheumatoid Arthritis: NO Current Tobacco Use: YES RISK FACTORS HISTORY OF: Family History of Osteoporosis: NO Active: YES Diet low in dairy products/other sources of calcium: NO Postmenopausal woman: TOTAL HYST AGE 17 Take estrogen and/or progesterone medications: TOOK HRT FROM AGE [age] Lost more than 2 inches in height since high school: NO MEDICATIONS: Prednisone or other steroids: YES How Long: APPROX 15 YEARS Additional Medications: MOTRIN 800, SINGULAIR, COMBIVENT, LISINOPRIL, Additional History: CYST REMOVED FROM LEFT WRIST AGE 12, LEFT SHOULDER REPLACEMENT JUN 2020 EXAM MEASUREMENTS: Bone mineral densitometry was performed using the my[employer]kin System. Bone mineral density as measured about the Lumbar spine is: ----- L1-L4(G/cm2): 1.138 T Score Values are as follows: ----- L2: -0.4 ----- L3: 0.1 ----- L4: -0.3 ----- L1-L4: -0.4 Bone mineral density has: INCREASED 7.2 % since study of: 2017 Bone mineral density about the R hip (g/cm2): 0.829 Bone mineral density about the L hip (g/cm2): 0.893 T Score values are as follows: -----R Neck: -1.5 -----L Neck: -1.0 -----R Total: -1.5 -----L Total: -0.9 Bone mineral density has: % PERCENT CHANGE % since study of: 2017 IMPRESSION: Osteopenia (T Score between -2.5 and -1). There is slightly increased risk of fracture and the patient may be considered for treatment. Re-Screen 2-5 years. NOTE: T-SCORE=SD OF THE YOUNG ADULT MEAN.
--- NOTE | 2020-07-23 14:43 | MM ---
Reason for exam: screening (asymptomatic). Last mammogram was performed 2 years and 4 months ago. History: Patient is postmenopausal and is nulliparous. Benign stereotactic core biopsy of the left breast, June 29, 2002. Core biopsy of the left breast. 2 excisional biopsies of the left breast. Taking estrogen for 1 month. Taking progesterone for 1 month. Physical Findings: A clinical breast exam by your physician is recommended on an annual basis and results should be correlated with mammographic findings. MG 3D Screening Mammo W/Cad Bilateral CC and MLO view(s) were taken. Prior study comparison: March 10, 2018, bilateral MG 3d screening mammo w/cad. March 09, 2017, bilateral MG screening mammo w CAD. The breast tissue is heterogeneously dense. This may lower the sensitivity of mammography. Previous mammotome biopsy in the left breast. There is chronic nodularity in the left breast. Stable 6 o'clock regional calcifications on the left. No significant changes when compared with prior studies. ASSESSMENT: Benign, BI-RAD 2 RECOMMENDATION: Routine screening mammogram of both breasts in 1 year.
== END | disposition home or self-care (01) ==
LOC: RADMAMWWP 09:06
PROVIDERS: ATTEND Family Medicine
DX: Z12.31 Encounter for screening mammogram for malignant neoplasm of breast (principal); M85.80 Other specified disorders of bone density and structure, unspecified site; Z78.0 Asymptomatic menopausal state
CPT/HCPCS: 77063; 77067; 77080

== ENCOUNTER 2021-01-05 15:39 | Inpatient (IN) | payer MEDICARE, OTHER ==
[2021-01-05] MEDS ORDERED: SODIUM CHLORIDE 0.9% 1,000 ML IV STA (16:51)
[2021-01-05] MEDS ORDERED: ONDANSETRON 4 MG/2 ML VIAL IVP STA (17:10)
[2021-01-05] MEDS ORDERED: MORPHINE SULFATE 4 MG/ML SYRINGE IVP STA (17:52)
--- NOTE | 2021-01-05 17:57 | ED ---
Abdominal Pain HPI - General Chief Complaint: Abdominal Pain Stated Complaint: Abd pain Time Seen by Provider: 01/05/21 16:51 Source: patient, EMS Mode of arrival: EMS Limitations: no limitations - History of Present Illness Initial Comments: Lawanda Berkowitz is a 65-year-old female presents to ER today for evaluation of nausea, vomiting, abdominal cramping and bright red blood in stool. Patient reports that she woke this morning around 5 AM began having diarrhea. She states that she's had some bright red blood in the stool. She states that she did do: G uarded test in the recent month and was advised on Tuesday that it was normal and she did not have to repeat in 3 years. Despite this patient developed a bright red blood per rectum today. She's also been nauseated and had multiple episodes of what she describes as heavy bile vomiting. She did have a bloody nose after vomiting and then had another episode of vomiting that had blood in it however this may have been swallowed blood. - Related Data Home Medications Medication Instructions Recorded Confirmed Acetaminophen [Acetaminophen 8 1,300 mg PO BID PRN 06/16/20 06/19/20 Hour] Ergocalciferol [Vitamin D2] 50,000 unit PO QMONTHLY 06/16/20 06/19/20 Ibuprofen [Motrin] 800 mg PO BID PRN 06/16/20 06/19/20 Ipratropium/Albuterol Sulfate 1 puff INHALATION QID 06/16/20 06/19/20 [Combivent Respimat Inhaler] Lisinopril-Hctz 10-12.5 mg 1 tab PO DAILY 06/16/20 06/19/20 [Zestoretic 10-12.5] Loratadine-Pseudoeph 10-240 mg 1 tab PO DAILY 06/16/20 06/19/20 [Claritin-D 24 Hour] Montelukast [Singulair] 10 mg PO HS 06/16/20 06/19/20 Vitamin C/Biotin [Hair, Skin and 2 tab PO DAILY 06/16/20 06/19/20 Nails] diazePAM [Valium] 5 mg PO QID PRN 06/16/20 06/19/20 diphenhydrAMINE HCL [Benadryl] 25 mg PO HS 06/16/20 06/19/20 estradioL [Estrace] 0.5 mg VAGINAL SUWE 06/16/20 06/19/20 Previous Rx's Medication Instructions Recorded Doxycycline Hyclate 100 mg PO BID #10 tab 06/19/20 Docusate [Colace] 100 mg PO BID #60 capsule 06/20/20 HYDROcodone/APAP 7.5-325MG [Toney 1 - 2 each PO Q6HR PRN #42 tab 06/20/20 7.5-325] traMADol HCL [Ultram] 50 mg PO Q4HR PRN #42 tab 06/20/20 Allergies Allergy/AdvReac Type Severity Reaction Status Date / Time Penicillins Allergy Severe Vomiting Verified 01/05/21 15:41 albuterol Allergy Rapid Verified 01/05/21 15:41 Heart Rate citric acid Allergy Swelling Verified 01/05/21 15:41 codeine Allergy Rash/Hives/ Verified 01/05/21 15:41 vomiting silver Allergy Unknown Verified 01/05/21 15:41 aspirin AdvReac Nausea & Verified 01/05/21 15:41 Vomiting dial soap Allergy Severe Rash/Hives Uncoded 01/05/21 15:41 fragrance Allergy Severe Rash/Hives Uncoded 01/05/21 15:41 surgical metal Allergy Rash/Hives Uncoded 01/05/21 15:41 Review of Systems ROS Statement: Those systems with pertinent positive or pertinent negative responses have been documented in the HPI. ROS Other: All systems not noted in ROS Statement are negative. 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 cyst removed from left wrist, LEFT SHOULDER REPLACEMENT Past Anesthesia/Blood Transfusion Reactions: No Reported Reaction Past Psychological History: No Psychological Hx Reported Smoking Status: Current every day smoker Past Alcohol Use History: None Reported Past Drug Use History: Marijuana - Past Family History Father Family Medical History: Cancer Additional Family Medical History / Comment(s): lung General Exam - General Exam Comments Initial Comments: Physical Exam GENERAL: Patient is well-developed and well-nourished. Patient is nontoxic and well-hydrated and is in no distress. HENT: Normocephalic, Atraumatic. EYES: PERRL, EOMI PULMONARY: Unlabored respirations. No audible rales rhonchi or wheezing was noted. CARDIOVASCULAR: There is a regular rate and rhythm without any murmurs gallops or rubs. ABDOMEN: Diffuse tenderness SKIN: Skin is clear with no lesions or rashes and otherwise unremarkable. : Deferred Bright red blood per rectum, no melena NEUROLOGIC: Patient is alert and oriented x3. Moving all extremities spontaneously MUSCULOSKELETAL: Normal extremities with adequate strength and full range of motion. No lower extremity swelling or edema. No calf tenderness. PSYCHIATRIC: Normal psychiatric evaluation. Limitations: no limitations Course Vital Signs 01/05/21 15:41 Temperature 98 F Pulse Rate 80 Respiratory 18 Rate Blood Pressure 140/82 O2 Sat by Pulse 97 Oximetry Medical Decision Making - Medical Decision Making Patient was seen and evaluated history is obtained from the patient Labs and imaging were ordered Labs were relatively unremarkable, mild leukocytosis, mild lactic acidosis [facility] provided a stool sample while in the emergency department which was grossly bloody, bright red blood IV fluids were ordered CT scan revealed mild colitis Patient agreeable to plan for admission for IV fluid resuscitation, antibiotics and observation for hematochezia Dr. Watkins accepts the admission - Lab Data Result diagrams: 01/05/21 16:59 01/05/21 16:59 Lab Results 01/05/21 01/05/21 01/05/21 Range/Units 16:59 16:59 16:59 WBC 12.8 H (3.8-10.6) k/uL RBC 4.37 (3.80-5.40) m/uL Hgb 14.0 (11.4-16.0) gm/dL Hct 39.0 (34.0-46.0) % MCV 89.3 (80.0-100.0) fL MCH 32.0 (25.0-35.0) pg MCHC 35.8 (31.0-37.0) g/dL RDW 12.6 (11.5-15.5) % Plt Count 372 (150-450) k/uL MPV 8.0 Neutrophils % 88 % Lymphocytes % 8 % Monocytes % 2 % Eosinophils % 1 % Basophils % 1 % Neutrophils # 11.2 H (1.3-7.7) k/uL Lymphocytes # 1.1 (1.0-4.8) k/uL Monocytes # 0.3 (0-1.0) k/uL Eosinophils # 0.1 (0-0.7) k/uL Basophils # 0.1 (0-0.2) k/uL Sodium 138 (137-145) mmol/L Potassium 4.0 (3.5-5.1) mmol/L Chloride 105 (98-107) mmol/L Carbon Dioxide 27 (22-30) mmol/L Anion Gap 6 mmol/L BUN 24 H (7-17) mg/dL Creatinine 0.55 (0.52-1.04) mg/dL Est GFR (CKD-EPI)AfAm >90 (>60 ml/min/1.73 sqM) Est GFR (CKD-EPI)NonAf >90 (>60 ml/min/1.73 sqM) Glucose 111 H (74-99) mg/dL Plasma Lactic Acid Jayy (0.7-2.0) mmol/L Calcium 8.8 (8.4-10.2) mg/dL Total Bilirubin 0.4 (0.2-1.3) mg/dL AST 21 (14-36) U/L ALT 11 (4-34) U/L Alkaline Phosphatase 79 (38-126) U/L Troponin I (0.000-0.034) ng/mL Total Protein 6.3 (6.3-8.2) g/dL Albumin 4.1 (3.5-5.0) g/dL Lipase 179 (23-300) U/L Urine Color Yellow Urine Appearance Clear (Clear) Urine pH 6.0 (5.0-8.0) Ur Specific [place] 1.020 (1.001-1.035) Urine Protein Negative (Negative) Urine Glucose (UA) Negative (Negative) Urine Ketones Trace H (Negative) Urine Blood Small H (Negative) Urine Nitrite Negative (Negative) Urine Bilirubin Negative (Negative) Urine Urobilinogen <2.0 (<2.0) mg/dL Ur Leukocyte Esterase Negative (Negative) Urine RBC 13 H (0-5) /hpf Urine WBC <1 (0-5) /hpf Ur Squamous Epith Cells <1 (0-4) /hpf Urine Mucus Few H (None) /hpf 01/05/21 01/05/21 Range/Units 16:59 16:59 WBC (3.8-10.6) k/uL RBC (3.80-5.40) m/uL Hgb (11.4-16.0) gm/dL Hct (34.0-46.0) % MCV (80.0-100.0) fL MCH (25.0-35.0) pg MCHC (31.0-37.0) g/dL RDW (11.5-15.5) % Plt Count (150-450) k/uL MPV Neutrophils % % Lymphocytes % % Monocytes % % Eosinophils % % Basophils % % Neutrophils # (1.3-7.7) k/uL Lymphocytes # (1.0-4.8) k/uL Monocytes # (0-1.0) k/uL Eosinophils # (0-0.7) k/uL Basophils # (0-0.2) k/uL Sodium (137-145) mmol/L Potassium (3.5-5.1) mmol/L Chloride (98-107) mmol/L Carbon Dioxide (22-30) mmol/L Anion Gap mmol/L BUN (7-17) mg/dL Creatinine (0.52-1.04) mg/dL Est GFR (CKD-EPI)AfAm (>60 ml/min/1.73 sqM) Est GFR (CKD-EPI)NonAf (>60 ml/min/1.73 sqM) Glucose (74-99) mg/dL Plasma Lactic Acid Jayy 2.2 H* (0.7-2.0) mmol/L Calcium (8.4-10.2) mg/dL Total Bilirubin (0.2-1.3) mg/dL AST (14-36) U/L ALT (4-34) U/L Alkaline Phosphatase (38-126) U/L Troponin I <0.012 (0.000-0.034) ng/mL Total Protein (6.3-8.2) g/dL Albumin (3.5-5.0) g/dL Lipase (23-300) U/L Urine Color Urine Appearance (Clear) Urine pH (5.0-8.0) Ur Specific [place] (1.001-1.035) Urine Protein (Negative) Urine Glucose (UA) (Negative) Urine Ketones (Negative) Urine Blood (Negative) Urine Nitrite (Negative) Urine Bilirubin (Negative) Urine Urobilinogen (<2.0) mg/dL Ur Leukocyte Esterase (Negative) Urine RBC (0-5) /hpf Urine WBC (0-5) /hpf Ur Squamous Epith Cells (0-4) /hpf Urine Mucus (None) /hpf Disposition Clinical Impression: Colitis, BRBPR (bright red blood per rectum) Disposition: ADMITTED IP TO THIS HOSP Condition: Stable Is patient prescribed a controlled substance at d/c from ED?: No Referrals: Svetlana Mosley MD [Primary Care Provider] - 1-2 days
[2021-01-05 18:28] LABS: Basophils # (A) 0.1 k/uL (0-0.2); Basophils % (A) 1 %; Eosinophils # (A) 0.1 k/uL (0-0.7); Eosinophils % (A) 1 %; Lymphocytes # (A) 1.1 k/uL (1.0-4.8); Lymphocytes % (A) 8 %; MCHC 35.8 g/dL (31.0-37.0); MCV 89.3 fL (80.0-100.0); Monocytes # (A) 0.3 k/uL (0-1.0); Monocytes % (A) 2 %; Neutrophils # (A) 11.2 k/uL (1.3-7.7); Neutrophils % (A) 88 %; Platelet Count 372 k/uL (150-450); RBC 4.37 m/uL (3.80-5.40); RDW 12.6 % (11.5-15.5); WBC 12.8 k/uL (3.8-10.6)
[2021-01-05 18:32] LABS: Appearance,Urine Clear (Clear); Bilirubin,Urine Negative (Negative); Blood,Urine Small (Negative); Color,Urine Yellow; Glucose,Urine (UA) Negative (Negative); Ketones,Urine Trace (Negative); Leukocyte Esterase,Urine Negative (Negative); Mucus,Urine Few /hpf; Nitrite,Urine Negative (Negative); Protein,Urine Negative (Negative); RBC,Urine 13 /hpf (0-5); Squamous Epithelial Cell,Urine <1 /hpf (0-4); Urobilinogen,Urine <2.0 mg/dL (<2.0); WBC,Urine <1 /hpf (0-5)
[2021-01-05 18:41] LABS: ALT 11 U/L (4-34); AST 21 U/L (14-36); African American GFR (CKD) >90 (>60 ml/min/1.73 sqM); Albumin 4.1 g/dL (3.5-5.0); Alkaline Phosphatase 79 U/L (38-126); Anion Gap 6 mmol/L; Blood Urea Nitrogen 24 mg/dL (7-17); Calcium 8.8 mg/dL (8.4-10.2); Carbon Dioxide 27 mmol/L (22-30); Chloride 105 mmol/L (98-107); Glucose 111 mg/dL (74-99); Lipase 179 U/L (23-300); Non-African American GFR(CKD) >90 (>60 ml/min/1.73 sqM); Sodium 138 mmol/L (137-145); Total Bilirubin 0.4 mg/dL (0.2-1.3); Total Protein 6.3 g/dL (6.3-8.2)
--- NOTE | 2021-01-05 19:20 | CT ---
EXAMINATION TYPE: CT abdomen pelvis w con DATE OF EXAM: 01/05/2021 COMPARISON: None HISTORY: Abdominal pain, vomiting and diarrhea. CT DLP: 854.8 mGycm Automated exposure control for dose reduction was used. CONTRAST: Performed with IV Contrast, patient injected with 100ml mL of Isovue 300. Images obtained from the diaphragm to the floor the pelvis with contrast. Lung bases are clear of infiltrate. There is mild pulmonary emphysema. There is no pleural effusion. Heart size is normal. There is no pericardial effusion. Liver is intact. The bile ducts are not dilated. Gallbladder appears normal. Spleen is intact. Stomac h is intact. There is no pancreatic mass. Abdominal aorta is atheromatous. There is no adrenal mass. Kidneys show satisfactory contrast opacification. There is no hydronephrosi s. Abdominal aorta measures up to 2.7 cm. There is no retroperitoneal adenopathy. Ureters are not dil ated. Delayed images show normal renal excretion. Bladder distends smoothly. There is no inguinal her martin. There is no free fluid in the pelvis. The large bowel is mostly empty involving the left colon. There are a few sigmoid diverticula. I see no diverticulitis. Wall thickness appears slightly increas ed in the descending colon and this is probably due to underdistention. Colitis not excluded. Appendix is not seen. There is no sign of thickened appendix. Lumbar vertebra have normal alignment. There is degenerative disc space narrowing at L2-3 with spur f ormation. There is no compression fracture. The bony pelvis is intact. IMPRESSION: There is possible mild wall thickening of the left colon that could relate to some minimal colitis. T here is minimal colonic diverticulosis.
[2021-01-05] MEDS ORDERED: NALOXONE 0.4 MG/ML 1 ML VIAL IV PRN (19:37)
[2021-01-05] MEDS ORDERED: ONDANSETRON 4 MG/2 ML VIAL IVP PRN (19:37)
[2021-01-05] MEDS ORDERED: metroNIDAZOLE-NS PMX 500 MG in SALINE 1 100ML.BAG IVPB STA (19:39)
[2021-01-05] MEDS: SODIUM CHLORIDE 0.9% 1,000 ML IV SCH (19:57)
[2021-01-05] MEDS: MORPHINE SULFATE 2 MG/ML SYRINGE IVP PRN (22:48)
[2021-01-05] MEDS ORDERED: diazePAM 5 MG TAB PO PRN (23:00)
[2021-01-05] MEDS ORDERED: IPRATROPIUM-ALBUTEROL 3 ML NEB INHALATION PRN (23:24)
[2021-01-05] MEDS: diphenhydrAMINE 25 MG CAP PO SCH (23:39)
[2021-01-05] MEDS: MONTELUKAST 10 MG TAB PO SCH (23:39)
[2021-01-06] MEDS: MORPHINE SULFATE 2 MG/ML SYRINGE IVP PRN ×5 (03:28→19:57)
[2021-01-06] MEDS: SODIUM CHLORIDE 0.9% 1,000 ML IV SCH ×3 (03:32→15:20)
[2021-01-06] MEDS: LORATADINE 10 MG TAB PO SCH (07:32)
[2021-01-06] MEDS: LISINOPRIL-HCTZ 10-12.5 MG 1 EACH TAB PO SCH (07:32)
[2021-01-06] MEDS: IPRATROPIUM-ALBUTEROL 3 ML NEB INHALATION SCH ×4 (08:09→20:02)
[2021-01-06] MEDS ORDERED: NON FORMULARY DRUG (Vitamin C/Biotin [Hair, Skin And Nails] 1 EACH Tab.Chew) PO SCH (09:00)
[2021-01-06 09:32] LABS: Basophils # (A) 0.05 X 10*3/uL (0.00-0.10); Basophils % (A) 0.4 %; Eosinophils # (A) 0.14 X 10*3/uL (0.04-0.35); Eosinophils % (A) 1.1 %; HCT 35.7 % (37.2-46.3); HGB 11.9 g/dL (12.0-15.0); Lymphocytes # (A) 3.68 X 10*3/uL (0.90-5.00); Lymphocytes % (A) 29.7 %; MCH 30.6 pg (27.0-32.0); MCHC 33.3 g/dL (32.0-37.0); MCV 91.8 fL (80.0-97.0); Monocytes # (A) 1.22 X 10*3/uL (0.20-1.00); Monocytes % (A) 9.8 %; Neutrophils # (A) 7.25 X 10*3/uL (1.80-7.70); Neutrophils % (A) 58.5 %; Platelet Count 300 X 10*3/uL (140-440); RBC 3.89 X 10*6/uL (4.10-5.20); RDW 12.8 % (11.5-14.5)
[2021-01-06 14:06] LABS: African American GFR (CKD) 104.6 (60.0-200.0); Albumin 3.6 g/dL (3.80-4.90); Anion Gap 3.2 mmol/L (4.00-12.00); Calcium 8.3 mg/dL (8.7-10.3); Carbon Dioxide 24.8 mmol/L (21.6-31.8); Non-African American GFR(CKD) 90.3 (60.0-200.0); Potassium 3.6 mmol/L (3.5-5.5); Total Protein 5.1 g/dL (6.2-8.2)
[2021-01-06 14:07] LABS: Albumin/Globulin Ratio 2.4 (1.60-3.17); Globulin 1.5 g/dL (1.6-3.3); Total Bilirubin 0.4 mg/dL (0.2-1.2)
[2021-01-06] MEDS: metroNIDAZOLE-NS PMX 500 MG in SALINE 1 100ML.BAG IVPB SCH ×2 (15:20→23:26)
--- NOTE | 2021-01-06 17:27 | P.HPIM ---
History of Present Illness H&P Date: 01/06/21 Lawanda Etienne, is a 65 year old female who presented to [facility] ER with a chief complaints of abdominal pain, nausea or vomiting and rectal bleeding. Her symptoms started within 24 hours of presentation. Actually patient stated that she had a cologuard test recently that was negative. She was evaluated in the emergency room, vital examination on presentation revealed a temperature of 98 pulse 80 respiration 18 blood pressure 140/82 pulse ox 97% on room air, laboratory data revealed a white blood count of 12.8 hemoglobin 14.0 platelet count 372 sodium 138 potassium 4.0 chloride 105 CO2 27 BUN 24 creatinine 0.55 glucose 111 lactic acid 2.2 AST ALT alkaline marilee sphatase normal. Computed tomography scan of the abdomen and pelvis revealed wall thickening of the left colon on that could represent minimal colitis, otherwise no acute findings, she was started on IV antibiotics and was admitted to medical floor gastroenterology consultation was requested. Past medical history is significant for history of hypertension, history of hyperlipidemia, history of asthma and COPD, history of anxiety disorder and history of nicotine use. 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 cyst removed from left wrist, LEFT SHOULDER REPLACEMENT Past Anesthesia/Blood Transfusion Reactions: No Reported Reaction Past Psychological History: No Psychological Hx Reported Smoking Status: Current every day smoker Past Alcohol Use History: None Reported Additional Past Alcohol Use History / Comment(s): smokes < 1 PPD, has smoked for 50 yrs Past Drug Use History: Marijuana Additional Drug Use History / Comment(s): daily use - Past Family History Father Family Medical History: Cancer Additional Family Medical History / Comment(s): lung Medications and Allergies Home Medications Medication Instructions Recorded Confirmed Type Ergocalciferol [Vitamin D2] 50,000 unit PO QMONTHLY 06/16/20 01/05/21 History Ibuprofen [Motrin] 800 mg PO HS 06/16/20 01/05/21 History Ipratropium/Albuterol Sulfate 1 puff INHALATION RT-QID 06/16/20 01/05/21 History [Combivent Respimat Inhaler] Lisinopril-Hctz 10-12.5 mg 1 tab PO DAILY 06/16/20 01/05/21 History [Zestoretic 10-12.5] Montelukast [Singulair] 10 mg PO HS 06/16/20 01/05/21 History Vitamin C/Biotin [Hair, Skin and 2 tab PO DAILY 06/16/20 01/05/21 History Nails] diazePAM [Valium] 5 mg PO DAILY PRN 06/16/20 01/05/21 History diphenhydrAMINE HCL [Benadryl] 25 mg PO HS 06/16/20 01/05/21 History Estradiol Cream [Estrace Cream 1 gm VAGINAL MOTH 01/05/21 01/05/21 History 0.01%] Loratadine [Claritin] 10 mg PO DAILY 01/05/21 01/05/21 History Allergies Allergy/AdvReac Type Severity Reaction Status Date / Time Penicillins Allergy Severe Vomiting Verified 01/05/21 21:04 albuterol Allergy Rapid Verified 01/05/21 21:04 Heart Rate citric acid Allergy Swelling Verified 01/05/21 21:04 codeine Allergy Rash/Hives/ Verified 01/05/21 21:04 vomiting silver Allergy Unknown Verified 01/05/21 21:04 aspirin AdvReac Nausea & Verified 01/05/21 21:04 Vomiting dial soap Allergy Severe Rash/Hives Uncoded 01/05/21 21:04 fragrance Allergy Severe Rash/Hives Uncoded 01/05/21 21:04 surgical metal Allergy Rash/Hives Uncoded 01/05/21 21:04 Physical Exam Vitals: Vital Signs Temp Pulse Pulse Resp BP BP Pulse Ox 01/06/21 12:03 59 L 01/06/21 11:55 68 01/06/21 08:18 83 01/06/21 08:09 81 01/06/21 07:00 98.3 F 81 18 119/69 95 01/06/21 02:00 98.8 F 88 17 112/69 96 01/06/21 00:06 84 01/06/21 00:02 79 01/05/21 20:00 98.9 F 79 20 153/73 95 01/05/21 19:25 87 18 138/73 96 01/05/21 15:41 98 F 80 18 140/82 97 Intake and Output 01/05/21 01/06/21 01/06/21 22:59 06:59 14:59 Intake Total 240 90 Balance 240 90 Intake: Oral 240 90 Other: Voiding Method Toilet Toilet # Voids 1 Weight 68.039 kg In general patient is alert and oriented x 3 in no distress HEENT head normocephalic and atraumatic Neck is supple no JVD no goiter no lymphadenopathy no carotid bruit Chest examination is clear to auscultation no crackles no wheezing Cardiac exam reveals regular heart sounds S1 and S2 no gallops no murmurs Abdomen is soft with mild diffuse tenderness mostly in the periumbilical area no organomegaly no palpable masses with normal bowel sounds Extremity exam reveals no edema no cyanosis or clubbing Neurological examination reveals no gross focal deficits Results CBC & Chem 7: 01/06/21 05:50 01/06/21 05:50 Labs: Abnormal Lab Results - Last 24 Hours (Table) 01/05/21 01/05/21 01/05/21 Range/Units 16:59 16:59 16:59 WBC 12.8 H (3.8-10.6) k/uL RBC (4.10-5.20) X 10*6/uL Hgb (12.0-15.0) g/dL Hct (37.2-46.3) % Immature Gran # (0.00-0.04) X 10*3/uL Neutrophils # 11.2 H (1.3-7.7) k/uL Monocytes # (0.20-1.00) X 10*3/uL BUN 24 H (7-17) mg/dL Glucose 111 H (74-99) mg/dL Plasma Lactic Acid Jayy (0.7-2.0) mmol/L Urine Ketones Trace H (Negative) Urine Blood Small H (Negative) Urine RBC 13 H (0-5) /hpf Urine Mucus Few H (None) /hpf 01/05/21 01/06/21 Range/Units 16:59 05:50 WBC 12.40 H (3.8-10.6) k/uL RBC 3.89 L (4.10-5.20) X 10*6/uL Hgb 11.9 L (12.0-15.0) g/dL Hct 35.7 L (37.2-46.3) % Immature Gran # 0.06 H (0.00-0.04) X 10*3/uL Neutrophils # (1.3-7.7) k/uL Monocytes # 1.22 H (0.20-1.00) X 10*3/uL BUN (7-17) mg/dL Glucose (74-99) mg/dL Plasma Lactic Acid Jayy 2.2 H* (0.7-2.0) mmol/L Urine Ketones (Negative) Urine Blood (Negative) Urine RBC (0-5) /hpf Urine Mucus (None) /hpf Thrombosis Risk Factor Assmnt - Choose All That Apply Each Factor Represents 1 point: Obesity (BMI >25) Each Risk Factor Represents 2 Points: Age 61-74 years Thrombosis Risk Factor Assessment Total Risk Factor Score: 3 Thrombosis Risk Factor Assessment Level: Moderate Risk Assessment and Plan Plan: Abdominal pain and rectal bleeding with positive computed tomography scan for area of colitis in the left colon Underlying history of hypertension Underlying history of hyperlipidemia Underlying history of COPD and asthma Underlying history of tobacco abuse Underlying history of anxiety disorder maintained on Valium At this time patient is admitted to medical floor She was started on IV antibiotics and IV fluid Will monitor CBC closely Gastroenterology consultation was requested Patient will be given nicotine, per her request she was counseled in regard to smoking cessation Will recheck labs and follow in a.m.
[2021-01-06] MEDS: NICOTINE POLACRILEX 2 MG GUM BUCCAL PRN (17:39)
[2021-01-06] MEDS ORDERED: MONTELUKAST 10 MG TAB PO SCH (21:00)
[2021-01-06] MEDS: IBUPROFEN 800 MG TAB PO SCH (22:09)
[2021-01-06] MEDS: MONTELUKAST 10 MG TAB PO SCH (22:12)
[2021-01-06] MEDS: diphenhydrAMINE 25 MG CAP PO SCH (22:12)
[2021-01-07] MEDS: MORPHINE SULFATE 2 MG/ML SYRINGE IVP PRN ×4 (02:52→20:19)
[2021-01-07] MEDS: SODIUM CHLORIDE 0.9% 1,000 ML IV SCH ×3 (03:37→16:50)
[2021-01-07] MEDS: LISINOPRIL-HCTZ 10-12.5 MG 1 EACH TAB PO SCH (07:55)
[2021-01-07] MEDS: LORATADINE 10 MG TAB PO SCH (07:55)
[2021-01-07] MEDS: IPRATROPIUM-ALBUTEROL 3 ML NEB INHALATION SCH ×4 (08:31→20:52)
[2021-01-07] MEDS: metroNIDAZOLE-NS PMX 500 MG in SALINE 1 100ML.BAG IVPB SCH ×2 (08:48→16:46)
[2021-01-07 09:20] LABS: Basophils # (A) 0.05 X 10*3/uL (0.00-0.10); Basophils % (A) 0.6 %; Eosinophils # (A) 0.17 X 10*3/uL (0.04-0.35); Eosinophils % (A) 1.9 %; HCT 31.1 % (37.2-46.3); HGB 10.4 g/dL (12.0-15.0); Lymphocytes # (A) 2.61 X 10*3/uL (0.90-5.00); Lymphocytes % (A) 28.9 %; MCH 30.9 pg (27.0-32.0); MCHC 33.4 g/dL (32.0-37.0); MCV 92.3 fL (80.0-97.0); Monocytes # (A) 0.82 X 10*3/uL (0.20-1.00); Monocytes % (A) 9.1 %; Neutrophils # (A) 5.34 X 10*3/uL (1.80-7.70); Neutrophils % (A) 59.1 %; Platelet Count 263 X 10*3/uL (140-440); RBC 3.37 X 10*6/uL (4.10-5.20); RDW 12.8 % (11.5-14.5); WBC 9.03 X 10*3/uL (4.50-10.00)
--- NOTE | 2021-01-07 12:52 | P.PN ---
Subjective Progress Note Date: 01/07/21 Lawanda Etienne, is a 65 year old female who presented to [facility] ER with a chief complaints of abdominal pain, nausea or vomiting and rectal bleeding. Her symptoms started within 24 hours of presentation. Actually patient stated that she had a cologuard test recently that was negative. She was evaluated in the emergency room, vital examination on presentation revealed a temperature of 98 pulse 80 respiration 18 blood pressure 140/82 pulse ox 97% on room air, laboratory data revealed a white blood count of 12.8 hemoglobin 14.0 platelet count 372 sodium 138 potassium 4.0 chloride 105 CO2 27 BUN 24 creatinine 0.55 glucose 111 lactic acid 2.2 AST ALT alkaline phosphatase normal. Computed tomography scan of the abdomen and pelvis revealed wall thickening of the left colon on that could represent minimal colitis, otherwise no acute findings, she was started on IV antibiotics and was admitted to medical floor gastroenterology consultation was requested. Past medical history is significant for history of hypertension, history of hyperlipidemia, history of asthma and COPD, history of anxiety disorder and history of nicotine use. On 01/07/2021 patient is alert and oriented 3. Patient reports some improvement with abdominal discomfort. Patient denies any further episodes of bleeding. Patient maintained on Rocephin and Flagyl. White blood cell improving to 9.03. Hgb 10.4. Discussed case with GI team at this time patient is open to having colonoscopy in which she previously declined. Per GI team will discuss case and make decision in regards to possible colonoscopy inpatient vs. outpatient. Maintained on clear liquid diet. At this time patient denies chest pain. Patient denies nausea vomiting or diarrhea. Patient denies any urinary burning or frequency Objective - Vital Signs Vital signs: Vital Signs Temp 98.3 F 01/07/21 07:00 Pulse 82 01/07/21 12:05 Resp 18 01/07/21 12:05 BP 117/71 01/07/21 07:00 Pulse Ox 95 01/07/21 07:00 Intake & Output 01/06/21 01/07/21 01/07/21 18:59 06:59 18:59 Intake Total 270 0 Balance 270 0 Intake: Oral 270 0 Other: Voiding Method Toilet Toilet Toilet # Voids 3 1 # Bowel Movements 1 - Exam In general patient is alert and oriented x 3 in no distress HEENT head normocephalic and atraumatic Neck is supple no JVD no goiter no lymphadenopathy no carotid bruit Chest examination is clear to auscultation no crackles no wheezing Cardiac exam reveals regular heart sounds S1 and S2 no gallops no murmurs Abdomen is soft with mild diffuse tenderness mostly in the periumbilical area no organomegaly no palpable masses with normal bowel sounds Extremity exam reveals no edema no cyanosis or clubbing Neurological examination reveals no gross focal deficits - Labs CBC & Chem 7: 01/07/21 04:45 01/06/21 05:50 Labs: Abnormal Lab Results - Last 24 Hours (Table) 01/06/21 01/07/21 Range/Units 05:50 04:45 RBC 3.37 L (4.10-5.20) X 10*6/uL Hgb 10.4 L (12.0-15.0) g/dL Hct 31.1 L (37.2-46.3) % Chloride 114 H (96-109) mmol/L Anion Gap 3.20 L (4.00-12.00) mmol/L Calcium 8.3 L (8.7-10.3) mg/dL Total Protein 5.1 L (6.2-8.2) g/dL Albumin 3.60 L (3.80-4.90) g/dL Globulin 1.5 L (1.6-3.3) g/dL Assessment and Plan Plan: Abdominal pain and rectal bleeding with positive computed tomography scan for area of colitis in the left colon Underlying history of hypertension Underlying history of hyperlipidemia Underlying history of COPD and asthma Underlying history of tobacco abuse Underlying history of anxiety disorder maintained on Valium At this time patient is admitted to medical floor She was started on IV antibiotics and IV fluid Will monitor CBC closely Patient will be given nicotine, per her request she was counseled in regard to smoking cessation Will recheck labs and follow in a.m. Possible plan for colonoscopy per GI team on 01/08/2021
[2021-01-07 13:48] LABS: African American GFR (CKD) 104.6 (60.0-200.0); Albumin 3.5 g/dL (3.80-4.90); Albumin/Globulin Ratio 2.69 (1.60-3.17); Anion Gap 6.2 mmol/L (4.00-12.00); BUN/Creat Ratio 11.43 Ratio (12.00-20.00); Calcium 7.9 mg/dL (8.7-10.3); Carbon Dioxide 24.8 mmol/L (21.6-31.8); Globulin 1.3 g/dL (1.6-3.3); Non-African American GFR(CKD) 90.3 (60.0-200.0); Potassium 3.2 mmol/L (3.5-5.5); Total Bilirubin 0.3 mg/dL (0.3-1.2); Total Protein 4.8 g/dL (6.2-8.2)
--- NOTE | 2021-01-07 15:34 | P.PN ---
Subjective Progress Note Date: 01/07/21 Principal diagnosis: Colitis, rectal bleeding She was seen and examined at bedside. She states she is feeling better today. She has had no further rectal bleeding, no bowel movement. Passing gas, no nausea, vomiting, or abdominal pain. Hemoglobin is stable at 10.4. Objective - Vital Signs Vital signs: Vital Signs Temp 98.3 F 01/07/21 07:00 Pulse 81 01/07/21 08:43 Resp 18 01/07/21 08:43 BP 117/71 01/07/21 07:00 Pulse Ox 95 01/07/21 07:00 Intake & Output 01/06/21 01/07/21 01/07/21 18:59 06:59 18:59 Intake Total 270 0 Balance 270 0 Intake: Oral 270 0 Other: Voiding Method Toilet Toilet Toilet # Voids 3 1 # Bowel Movements 1 - Exam General appearance: The patient is alert, oriented, appears in no acute distress. HET: Head is normocephalic and atraumatic. Conjunctiva pink. Sclera anicteric. Neck: Supple without lymphadenopathy. Abdomen: Soft, mild lower abdominal tenderness,, nondistended with bowel sounds. No guarding or rigidity. Extremities: Normal skin color and turgor. No pedal edema Skin: No rashes, no jaundice Neurological: No focal deficits. Alert and oriented 3. - Labs CBC & Chem 7: 01/07/21 04:45 01/07/21 04:45 Labs: Abnormal Lab Results - Last 24 Hours (Table) 01/06/21 01/07/21 Range/Units 05:50 04:45 RBC 3.37 L (4.10-5.20) X 10*6/uL Hgb 10.4 L (12.0-15.0) g/dL Hct 31.1 L (37.2-46.3) % Chloride 114 H (96-109) mmol/L Anion Gap 3.20 L (4.00-12.00) mmol/L Calcium 8.3 L (8.7-10.3) mg/dL Total Protein 5.1 L (6.2-8.2) g/dL Albumin 3.60 L (3.80-4.90) g/dL Globulin 1.5 L (1.6-3.3) g/dL Assessment and Plan (1) Colitis Narrative/Plan: 65-year-old female who presented to the emergency department with abdominal pain diarrhea vomiting, and bright red blood per rectum. No previous history of colitis, irritable bowel disease, or IBS. CT of the abdomen performed yesterday showed possible mild wall thickening of the left colon that could relate to some mild colitis. Denies any previous history of GI bleed. Likely dealing with acute uncomplicated colitis with possible etiologies including ischemic, inflammatory, or infectious. Patient had a cologuard last week that was negative. States she had a colonoscopy in the past for which she woke up during the procedure which was very painful and therefore refused to proceed with colonoscopy initially. Patient has not had any further rectal bleeding since admission. Abdominal pain is improved. She has no nausea or vomiting, no fever. She was like to proceed with the colonoscopy. Current Visit: Yes Status: Acute Code(s): K52.9 - NONINFECTIVE GASTROENTERITIS AND COLITIS, UNSPECIFIED SNOMED Code(s): 53902569 (2) BRBPR (bright red blood per rectum) Current Visit: Yes Status: Acute Code(s): K62.5 - HEMORRHAGE OF ANUS AND RECTUM SNOMED Code(s): 09353687 Plan: 1. Clear liquid diet, nothing by mouth after midnight 2. Bowel prep this evening 3. Repeat CBC in the morning 4. Plan for colonoscopy tomorrow. Procedure discussed with patient in detail including benefits and risks. Patient willing to proceed. Thank you for this consultation, we will continue to follow Dr. Marr I agree with the dictator's note, documented as a scribe by Kennedi Samayoa.
[2021-01-07] MEDS ORDERED: PEG 3350-NA SULF,BICARB,CL/KCL 4,000 ML BOTTLE PO ONE (17:00)
--- NOTE | 2021-01-07 17:35 | P.CONS ---
History of Present Illness - Reason for Consult Consult date: 01/06/21 Blood per rectum Requesting physician: Rivas Watkins - Chief Complaint GI bleed - History of Present Illness 65-year-old female with a medical history significant for COPD, tobacco abuse and hypertension who presented to the hospital with complaints of diarrhea, vomiting and bright red blood per rectum. Patient reports initially developing symptoms of nausea with vomiting and diarrhea and subsequently having multiple episodes of bright red blood per rectum. Previously she has had issues with hemorrhoids but states she has never had this amount of bleeding before. She denies any history of colitis, irritable bowel disease or IBS. The patient states that she had a colonoscopy in her early 50s but woke up during the procedure, more recently she had fecal testing within the past few weeks which she states was negative. Computed tomography scan performed on presentation showed possible mild wall thickening of the left colon which could relate to some mild colitis. Patient reports one further episode of bleeding today. Hemodynamically she has remained stable with only a slight drop in her hemoglobin at 11.9 today. She denies any sick contacts, unusual foods or travel prior to developing the symptoms. Review of Systems REVIEW OF SYSTEMS: CONSTITUTIONAL: Denies any fevers, chills, weight change or fatigue. CARDIOVASCULAR: Denies any chest pain, palpitations high or low blood pressures RESPIRATORY: Denies any shortness of breath, hemoptysis or cough. GENITOURINARY: No dysuria or hematuria. MUSCULOSKELETAL: No weakness reported. SKIN: Denies any new rashes or lesions, jaundice or pallor. PSYCHIATRIC: Denies any depression or anxiety. NEUROLOGY: Denies headache, denies any new focal deficits. EARS/NOSE/THROAT: No recent hearing change, congestion, nasal discharge or sore throat. EYES: No pain in eyes, discharge or change in vision. GASTROINTESTINAL: As per HPI. 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 cyst removed from left wrist, LEFT SHOULDER REPLACEMENT Past Anesthesia/Blood Transfusion Reactions: No Reported Reaction Past Psychological History: No Psychological Hx Reported Smoking Status: Current every day smoker Past Alcohol Use History: None Reported Additional Past Alcohol Use History / Comment(s): smokes < 1 PPD, has smoked for 50 yrs Past Drug Use History: Marijuana Additional Drug Use History / Comment(s): daily use - Past Family History Father Family Medical History: Cancer Additional Family Medical History / Comment(s): lung Medications and Allergies Home Medications Medication Instructions Recorded Confirmed Type Ergocalciferol [Vitamin D2] 50,000 unit PO QMONTHLY 06/16/20 01/05/21 History Ibuprofen [Motrin] 800 mg PO HS 06/16/20 01/05/21 History Ipratropium/Albuterol Sulfate 1 puff INHALATION RT-QID 06/16/20 01/05/21 History [Combivent Respimat Inhaler] Lisinopril-Hctz 10-12.5 mg 1 tab PO DAILY 06/16/20 01/05/21 History [Zestoretic 10-12.5] Montelukast [Singulair] 10 mg PO HS 06/16/20 01/05/21 History Vitamin C/Biotin [Hair, Skin and 2 tab PO DAILY 06/16/20 01/05/21 History Nails] diazePAM [Valium] 5 mg PO DAILY PRN 06/16/20 01/05/21 History diphenhydrAMINE HCL [Benadryl] 25 mg PO HS 06/16/20 01/05/21 History Estradiol Cream [Estrace Cream 1 gm VAGINAL MOTH 01/05/21 01/05/21 History 0.01%] Loratadine [Claritin] 10 mg PO DAILY 01/05/21 01/05/21 History Allergies Allergy/AdvReac Type Severity Reaction Status Date / Time Penicillins Allergy Severe Vomiting Verified 01/05/21 21:04 albuterol Allergy Rapid Verified 01/05/21 21:04 Heart Rate citric acid Allergy Swelling Verified 01/05/21 21:04 codeine Allergy Rash/Hives/ Verified 01/05/21 21:04 vomiting silver Allergy Unknown Verified 01/05/21 21:04 aspirin AdvReac Nausea & Verified 01/05/21 21:04 Vomiting dial soap Allergy Severe Rash/Hives Uncoded 01/05/21 21:04 fragrance Allergy Severe Rash/Hives Uncoded 01/05/21 21:04 surgical metal Allergy Rash/Hives Uncoded 01/05/21 21:04 Physical Exam Vitals: Vital Signs Temp Pulse Pulse Resp BP BP Pulse Ox 01/06/21 12:03 59 L 01/06/21 11:55 68 01/06/21 08:18 83 01/06/21 08:09 81 01/06/21 07:00 98.3 F 81 18 119/69 95 01/06/21 02:00 98.8 F 88 17 112/69 96 01/06/21 00:06 84 01/06/21 00:02 79 01/05/21 20:00 98.9 F 79 20 153/73 95 01/05/21 19:25 87 18 138/73 96 01/05/21 15:41 98 F 80 18 140/82 97 Intake and Output 01/05/21 01/06/21 01/06/21 22:59 06:59 14:59 Intake Total 240 90 Balance 240 90 Intake: Oral 240 90 Other: Voiding Method Toilet Toilet # Voids 1 Weight 68.039 kg On physical examination, patient appears comfortable in no apparent distress. HEAD: Normocephalic, atraumatic. EYES: No scleral icterus. No conjunctival injection. MOUTH: No lesions, tongue midline. NECK: Trachea midline, no gross abnormalities. CHEST: Decreased air entry in all lung steel. HEART: Regular rate and rhythm. ABDOMEN: Soft, obese and mildly tender to palpation. Bowel sounds are positive. No organomegaly. No guarding or rigidity. EXTREMITIES: No pedal edema. SKIN: No rashes, no jaundice. NEUROLOGIC: Alert and oriented x3. No focal deficits. Results CBC & Chem 7: 01/07/21 04:45 01/07/21 04:45 Labs: Abnormal Lab Results - Last 24 Hours (Table) 01/05/21 01/05/21 01/05/21 Range/Units 16:59 16:59 16:59 WBC 12.8 H (3.8-10.6) k/uL RBC (4.10-5.20) X 10*6/uL Hgb (12.0-15.0) g/dL Hct (37.2-46.3) % Immature Gran # (0.00-0.04) X 10*3/uL Neutrophils # 11.2 H (1.3-7.7) k/uL Monocytes # (0.20-1.00) X 10*3/uL BUN 24 H (7-17) mg/dL Glucose 111 H (74-99) mg/dL Plasma Lactic Acid Jayy (0.7-2.0) mmol/L Urine Ketones Trace H (Negative) Urine Blood Small H (Negative) Urine RBC 13 H (0-5) /hpf Urine Mucus Few H (None) /hpf 01/05/21 01/06/21 Range/Units 16:59 05:50 WBC 12.40 H (3.8-10.6) k/uL RBC 3.89 L (4.10-5.20) X 10*6/uL Hgb 11.9 L (12.0-15.0) g/dL Hct 35.7 L (37.2-46.3) % Immature Gran # 0.06 H (0.00-0.04) X 10*3/uL Neutrophils # (1.3-7.7) k/uL Monocytes # 1.22 H (0.20-1.00) X 10*3/uL BUN (7-17) mg/dL Glucose (74-99) mg/dL Plasma Lactic Acid Jayy 2.2 H* (0.7-2.0) mmol/L Urine Ketones (Negative) Urine Blood (Negative) Urine RBC (0-5) /hpf Urine Mucus (None) /hpf CT scan - abdomen: report reviewed (Computed tomography scan of the abdomen with mild left colonic wall thickening) Assessment and Plan (1) BRBPR (bright red blood per rectum) Narrative/Plan: 65-year-old female presenting with nausea and vomiting, diarrhea and blood per rectum. Computed tomography scan of the abdomen with evidence of mild left colonic wall thickening suggestive of possible colitis. Recent stool testing n egative for any findings to suggest malignancy. Last colonoscopy at the age of 49. She denies any sick contacts, or unusual foods or recent antibiotics. Unclear etiology, may be related to uncomplicated colitis with differential including ischemic or infectious etiology, diverticular bleed, perirectal bleeding or other etiology. Current Visit: Yes Status: Acute Code(s): K62.5 - HEMORRHAGE OF ANUS AND RECTUM SNOMED Code(s): 31992439 (2) Colitis Current Visit: Yes Status: Acute Code(s): K52.9 - NONINFECTIVE GASTROENTERITIS AND COLITIS, UNSPECIFIED SNOMED Code(s): 73229179 Plan: Supportive care Clear liquid diet Broad-spectrum antibiotic therapy ordered Continue monitor stool output Colonoscopy was offered to the patient today and she declined, she would like conservative medical management at this time Thank you for allowing us to participate in the care of the patient we will continue to follow
[2021-01-07] MEDS: IBUPROFEN 800 MG TAB PO SCH (20:18)
[2021-01-07] MEDS: MONTELUKAST 10 MG TAB PO SCH (20:19)
[2021-01-07] MEDS: diphenhydrAMINE 25 MG CAP PO SCH (20:19)
[2021-01-07 20:38] LABS: African American GFR (CKD) >90 (>60 ml/min/1.73 sqM); Anion Gap 4 mmol/L; Blood Urea Nitrogen 7 mg/dL (7-17); Calcium 8.7 mg/dL (8.4-10.2); Carbon Dioxide 30 mmol/L (22-30); Chloride 103 mmol/L (98-107); Glucose 87 mg/dL (74-99); Non-African American GFR(CKD) >90 (>60 ml/min/1.73 sqM); Potassium 3.1 mmol/L (3.5-5.1); Sodium 137 mmol/L (137-145)
[2021-01-07] MEDS: POTASSIUM CHLORIDE ER 20 MEQ TAB.ER PO SCH ×2 (21:00→22:03)
[2021-01-08] MEDS: metroNIDAZOLE-NS PMX 500 MG in SALINE 1 100ML.BAG IVPB SCH ×4 (00:09→23:17)
[2021-01-08] MEDS: MORPHINE SULFATE 2 MG/ML SYRINGE IVP PRN ×5 (00:13→22:26)
[2021-01-08] MEDS: SODIUM CHLORIDE 0.9% 1,000 ML IV SCH ×3 (01:15→18:28)
[2021-01-08] MEDS: IPRATROPIUM-ALBUTEROL 3 ML NEB INHALATION SCH ×4 (07:47→20:31)
[2021-01-08] MEDS ORDERED: Potassium Replacement Protocol 1 EACH MISC MISCELLANE PRN (08:42)
[2021-01-08] MEDS: LORATADINE 10 MG TAB PO SCH (08:57)
[2021-01-08] MEDS: LISINOPRIL-HCTZ 10-12.5 MG 1 EACH TAB PO SCH (08:57)
[2021-01-08] MEDS ORDERED: POTASSIUM CHLORIDE 10 MEQ in WATER FOR INJECTION 1 100ML.BAG IVPB SCH (09:00)
[2021-01-08] MEDS ORDERED: ESTRADIOL 0.1 MG/GM VAGINAL CREAM 42.5 GM TUBE VAGINAL SCH (09:00)
[2021-01-08 09:08] LABS: Basophils # (A) 0.05 X 10*3/uL (0.00-0.10); Basophils % (A) 0.5 %; Eosinophils # (A) 0.17 X 10*3/uL (0.04-0.35); Eosinophils % (A) 1.9 %; HGB 10.2 g/dL (12.0-15.0); Lymphocytes # (A) 2.36 X 10*3/uL (0.90-5.00); Lymphocytes % (A) 25.9 %; MCH 31.2 pg (27.0-32.0); MCHC 35.2 g/dL (32.0-37.0); MCV 88.7 fL (80.0-97.0); Mean Platelet Volume 10.2 fL (9.5-12.2); Monocytes # (A) 0.87 X 10*3/uL (0.20-1.00); Monocytes % (A) 9.6 %; Neutrophils # (A) 5.63 X 10*3/uL (1.80-7.70); Neutrophils % (A) 61.9 %; Platelet Count 245 X 10*3/uL (140-440); RBC 3.27 X 10*6/uL (4.10-5.20); RDW 12.5 % (11.5-14.5)
[2021-01-08 09:41] LABS: African American GFR (CKD) 110.1 (60.0-200.0); Albumin 3.4 g/dL (3.80-4.90); Albumin/Globulin Ratio 2.62 (1.60-3.17); BUN/Creat Ratio 11.67 Ratio (12.00-20.00); Calcium 8.1 mg/dL (8.7-10.3); Globulin 1.3 g/dL (1.6-3.3); Potassium 3.6 mmol/L (3.5-5.5); Total Bilirubin 0.4 mg/dL (0.3-1.2); Total Protein 4.7 g/dL (6.2-8.2)
--- NOTE | 2021-01-08 10:29 | P.PN ---
Subjective Progress Note Date: 01/08/21 Lawanda Etienne, is a 65 year old female who presented to [facility] ER with a chief complaints of abdominal pain, nausea or vomiting and rectal bleeding. Her symptoms started within 24 hours of presentation. Actually patient stated that she had a cologuard test recently that was negative. She was evaluated in the emergency room, vital examination on presentation revealed a temperature of 98 pulse 80 respiration 18 blood pressure 140/82 pulse ox 97% on room air, laboratory data revealed a white blood count of 12.8 hemoglobin 14.0 platelet count 372 sodium 138 potassium 4.0 chloride 105 CO2 27 BUN 24 creatinine 0.55 glucose 111 lactic acid 2.2 AST ALT alkaline phosphatase normal. Computed tomography scan of the abdomen and pelvis revealed wall thickening of the left colon on that could represent minimal colitis, otherwise no acute findings, she was started on IV antibiotics and was admitted to medical floor gastroenterology consultation was requested. Past medical history is significant for history of hypertension, history of hyperlipidemia, history of asthma and COPD, history of anxiety disorder and history of nicotine use. On 01/07/2021 patient is alert and oriented 3. Patient reports some improvement with abdominal discomfort. Patient denies any further episodes of bleeding. Patient maintained on Rocephin and Flagyl. White blood cell improving to 9.03. Hgb 10.4. Discussed case with GI team at this time patient is open to having colonoscopy in which she previously declined. Per GI team will discuss case and make decision in regards to possible colonoscopy inpatient vs. outpatient. Maintained on clear liquid diet. At this time patient denies chest pain. Patient denies nausea vomiting or diarrhea. Patient denies any urinary burning or frequency On 01/08/2021. Patient is alert and oriented 3. Patient still having some mild abdominal discomfort and tenderness. Patient denies any nausea vomiting or diarrhea. No further episodes of GI bleeding. Plans for colonoscopy today per GI services. Hemoglobin 10.2. Potassium 3.6 replace per protocol. Patient maintained on IV antibiotics. This time patient denies chest pain or shortness breath. Patient denies nausea vomiting or diarrhea. Patient denies any urinary burning or frequency Objective - Vital Signs Vital signs: Vital Signs Temp 98.7 F 01/08/21 08:00 Pulse 77 01/08/21 08:00 Resp 16 01/08/21 08:00 BP 120/62 01/08/21 08:00 Pulse Ox 96 01/08/21 08:00 Intake & Output 01/07/21 01/08/21 01/08/21 18:59 06:59 18:59 Intake Total 0 0 Balance 0 0 Intake: Oral 0 0 Other: Voiding Method Toilet Toilet Toilet # Voids 1 # Bowel Movements 4 - Exam In general patient is alert and oriented x 3 in no distress HEENT head normocephalic and atraumatic Neck is supple no JVD no goiter no lymphadenopathy no carotid bruit Chest examination is clear to auscultation no crackles no wheezing Cardiac exam reveals regular heart sounds S1 and S2 no gallops no murmurs Abdomen is soft with mild diffuse tenderness mostly in the periumbilical area no organomegaly no palpable masses with normal bowel sounds Extremity exam reveals no edema no cyanosis or clubbing Neurological examination reveals no gross focal deficits - Labs CBC & Chem 7: 01/08/21 04:46 01/08/21 04:46 Labs: Abnormal Lab Results - Last 24 Hours (Table) 01/07/21 01/07/21 01/08/21 Range/Units 04:45 19:57 04:46 RBC 3.27 L (4.10-5.20) X 10*6/uL Hgb 10.2 L (12.0-15.0) g/dL Hct 29.0 L (37.2-46.3) % Potassium 3.2 L 3.1 L (3.5-5.5) mmol/L Chloride 110 H (96-109) mmol/L BUN 8.0 L (9.0-27.0) mg/dL BUN/Creatinine Ratio 11.43 L (12.00-20.00) Ratio Calcium 7.9 L (8.7-10.3) mg/dL AST 11 L (13-35) U/L Total Protein 4.8 L (6.2-8.2) g/dL Albumin 3.50 L (3.80-4.90) g/dL Globulin 1.3 L (1.6-3.3) g/dL 01/08/21 Range/Units 04:46 RBC (4.10-5.20) X 10*6/uL Hgb (12.0-15.0) g/dL Hct (37.2-46.3) % Potassium (3.5-5.5) mmol/L Chloride (96-109) mmol/L BUN 7.0 L (9.0-27.0) mg/dL BUN/Creatinine Ratio 11.67 L (12.00-20.00) Ratio Calcium 8.1 L (8.7-10.3) mg/dL AST (13-35) U/L Total Protein 4.7 L (6.2-8.2) g/dL Albumin 3.40 L (3.80-4.90) g/dL Globulin 1.3 L (1.6-3.3) g/dL Assessment and Plan Plan: Abdominal pain and rectal bleeding with positive computed tomography scan for area of colitis in the left colon Underlying history of hypertension Underlying history of hyperlipidemia Underlying history of COPD and asthma Underlying history of tobacco abuse Underlying history of anxiety disorder maintained on Valium At this time patient is admitted to medical floor She was started on IV antibiotics and IV fluid Will monitor CBC closely Patient will be given nicotine, per her request she was counseled in regard to smoking cessation Will recheck labs and follow in a.m. Possible plan for colonoscopy per GI team on 01/08/2021
[2021-01-08] MEDS ORDERED: POTASSIUM CHLORIDE ER 20 MEQ TAB.ER PO SCH (11:00)
[2021-01-08] MEDS ORDERED: IV FLUID CONTINUATION 1,000 ML IV ONE ×2 (13:04)
[2021-01-08] MEDS ORDERED: PROPOFOL 10 MG/ML 20 ML VIAL IV ONE (13:06)
[2021-01-08] MEDS ORDERED: LIDOCAINE 1% INJ 10MG/ML (20 ML MDV) ONE (13:06)
--- NOTE | 2021-01-08 13:42 | P.PCN ---
Date of Procedure: 01/08/21 Description of Procedure: BRIEF HISTORY: 65-year-old female with a medical history significant for COPD, tobacco abuse and hypertension who presented to the hospital with complaints of diarrhea, vomiting and bright red blood per rectum. Patient reports initially developing symptoms of nausea with vomiting and diarrhea and subsequently having multiple episodes of bright red blood per rectum. Previously she has had issues with hemorrhoids but states she has never had this amount of bleeding before. She denies any history of colitis, irritable bowel disease or IBS. The patient states that she had a colonoscopy in her early 50s but woke up during the procedure, more recently she had fecal testing within the past few weeks which she states was negative. Computed tomography scan performed on presentation showed possible mild wall thickening of the left colon which could relate to some mild colitis. Patient reports one further episode of bleeding today. PROCEDURE PERFORMED: Colonoscopy with polypectomy and biopsy. PREOPERATIVE DIAGNOSIS: GI bleed, abnormal computed tomography scan of the abdomen, colitis. ESTIMATED BLOOD LOSS: Minimal. IV sedation per Anesthesia. PROCEDURE: After informed consent was obtained, the patient, was brought into the endoscopy unit. IV sedation was administered by Anesthesia under continuous monitoring. Digital rectal examination was normal. Initially the Olympus CF-190 flexible video colonoscope was then inserted in the rectum, gradually advanced into the cecum without any difficulty. Careful examination was performed as the scope was gradually being withdrawn. Ileocecal valve and the appendiceal orifice were visualized and appeared normal. Prep was excellent. Mucosa of the cecum, ascending colon, transverse colon, descending colon, sigmoid colon, and rectum were grossly normal except for some erythema and superficial ulcerations in the left colon from approximately 50 cm from the anal verge to 25 cm from the anal verge likely related to acute colitis with biopsies of the left colon taken, normal-appearing right colon. A diminutive 2 mm cecal polyp was also removed with cold forcep polypectomy. Multiple small and large mouth diverticula in the left colon noted. Retroflexion was performed in the rectum and no lesions were seen, moderate internal hemorrhoids were seen. The patient tolerated the procedure well. IMPRESSION: Moderate left colitis, likely related to infectious or ischemic etiology. Left colonic diverticulosis. Diminutive cecal polyp removed with cold forcep polypectomy. Moderate internal hemorrhoids. RECOMMENDATIONS: Findings of this examination were discussed with the patient.. Okay for her soft diet. Continue to monitor clinically and labs. Complete antibiotic course as scheduled. Await pathology from biopsies. Follow up in the GI clinic in 1-2 weeks for the results of the biopsies.
[2021-01-08] MEDS: NICOTINE POLACRILEX 2 MG GUM BUCCAL PRN (17:46)
[2021-01-08] MEDS: diphenhydrAMINE 25 MG CAP PO SCH (19:38)
[2021-01-08] MEDS: IBUPROFEN 800 MG TAB PO SCH (19:39)
[2021-01-08] MEDS: MONTELUKAST 10 MG TAB PO SCH (19:39)
[2021-01-09] MEDS: SODIUM CHLORIDE 0.9% 1,000 ML IV SCH ×2 (01:17→10:01)
[2021-01-09 02:14] VITALS: RESP 18
[2021-01-09] MEDS: MORPHINE SULFATE 2 MG/ML SYRINGE IVP PRN (05:19)
[2021-01-09 07:17] VITALS: BP 114/73; TEMP 98.6
[2021-01-09] MEDS: IPRATROPIUM-ALBUTEROL 3 ML NEB INHALATION SCH ×2 (08:18→12:01)
[2021-01-09] MEDS: LORATADINE 10 MG TAB PO SCH (08:29)
[2021-01-09] MEDS: LISINOPRIL-HCTZ 10-12.5 MG 1 EACH TAB PO SCH (08:29)
[2021-01-09] MEDS: metroNIDAZOLE-NS PMX 500 MG in SALINE 1 100ML.BAG IVPB SCH (08:30)
[2021-01-09 09:47] LABS: Basophils # (A) 0.04 X 10*3/uL (0.00-0.10); Basophils % (A) 0.6 %; Eosinophils # (A) 0.31 X 10*3/uL (0.04-0.35); Eosinophils % (A) 4.4 %; HCT 30.6 % (37.2-46.3); HGB 10.7 g/dL (12.0-15.0); Lymphocytes # (A) 2.57 X 10*3/uL (0.90-5.00); Lymphocytes % (A) 36.5 %; MCH 31.4 pg (27.0-32.0); MCV 89.7 fL (80.0-97.0); Monocytes % (A) 9.9 %; Neutrophils # (A) 3.41 X 10*3/uL (1.80-7.70); Neutrophils % (A) 48.3 %; Platelet Count 261 X 10*3/uL (140-440); RBC 3.41 X 10*6/uL (4.10-5.20); RDW 12.6 % (11.5-14.5); WBC 7.05 X 10*3/uL (4.50-10.00)
--- NOTE | 2021-01-09 10:47 | P.PN ---
Subjective Progress Note Date: 01/09/21 Principal diagnosis: Colitis, rectal bleeding Patient is seen and examined lying in bed. She is status post colonoscopy yesterday with findings of colitis. She is denying any abdominal pain, nausea, or vomiting. Denies any rectal bleeding or blood in her stool. She is tolera ting her diet. Hemoglobin improved to 10.7 Objective - Vital Signs Vital signs: Vital Signs Temp 98.6 F 01/09/21 07:16 Pulse 74 01/09/21 08:28 Resp 18 01/09/21 07:16 BP 114/73 01/09/21 07:16 Pulse Ox 96 01/09/21 07:16 Intake & Output 01/08/21 01/09/21 01/09/21 18:59 06:59 18:59 Intake Total 300 Balance 300 Intake: IV 300 Oral 0 Other: Voiding Method Toilet Toilet # Voids 4 2 - Exam General appearance: The patient is alert, oriented, appears in no acute distress. HET: Head is normocephalic and atraumatic. Conjunctiva pink. Sclera anicteric. Neck: Supple without lymphadenopathy. Abdomen: Soft, mild lower abdominal tenderness,, nondistended with bowel sounds. No guarding or rigidity. Extremities: Normal skin color and turgor. No pedal edema Skin: No rashes, no jaundice Neurological: No focal deficits. Alert and oriented 3. - Labs CBC & Chem 7: 01/09/21 04:44 01/08/21 04:46 Labs: Abnormal Lab Results - Last 24 Hours (Table) 01/09/21 Range/Units 04:44 RBC 3.41 L (4.10-5.20) X 10*6/uL Hgb 10.7 L (12.0-15.0) g/dL Hct 30.6 L (37.2-46.3) % Assessment and Plan (1) Colitis Narrative/Plan: 65-year-old female who presented to the emergency department with abdominal pain diarrhea vomiting, and bright red blood per rectum. No previous history of colitis, irritable bowel disease, or IBS. CT of the abdomen performed yesterday showed possible mild wall thickening of the left colon that could relate to some mild colitis. Denies any previous history of GI bleed. Likely dealing with acute uncomplicated colitis with possible etiologies including ischemic, inflammatory, or infectious. Patient had a cologuard last week that was negative. States she had a colonoscopy in the past for which she woke up during the procedure which was very painful and therefore refused to proceed with colonoscopy initially. Patient has not had any further rectal bleeding since admission. Abdominal pain is improved. She has no nausea or vomiting, no fever. She was like to proceed with the colonoscopy. Status post colonoscopy with evidence of left colitis, left diverticulosis, polyps with polypectomy, and internal hemorrhoids. Current Visit: Yes Status: Acute Code(s): K52.9 - NONINFECTIVE GASTROENTERITIS AND COLITIS, UNSPECIFIED SNOMED Code(s): 98021625 (2) BRBPR (bright red blood per rectum) Current Visit: Yes Status: Acute Code(s): K62.5 - HEMORRHAGE OF ANUS AND RECTUM SNOMED Code(s): 05325422 Plan: 1. Low fiber diet 2. Patient is status post colonoscopy 3. Patient is clear by gastroenterology for discharge. She will need to follow-up in 1-2 weeks for biopsy results. Thank you for this consultation. Dr. Marr I agree with the dictator's note, documented as a scribe by Kennedi Smaayoa.
[2021-01-09 10:59] LABS: African American GFR (CKD) 110.1 (60.0-200.0); Albumin 3.4 g/dL (3.80-4.90); Albumin/Globulin Ratio 2.62 (1.60-3.17); Anion Gap 4.8 mmol/L (4.00-12.00); Carbon Dioxide 26.2 mmol/L (21.6-31.8); Globulin 1.3 g/dL (1.6-3.3); Potassium 3.4 mmol/L (3.5-5.5); Total Bilirubin 0.3 mg/dL (0.2-1.2); Total Protein 4.7 g/dL (6.2-8.2)
[2021-01-09 12:11] VITALS: PULSE 72
--- NOTE | 2021-01-14 13:18 | P.DS ---
Providers Date of admission: 01/06/21 20:04 Expected date of discharge: 01/09/21 Attending physician: Rivas Watkins Consults: 01/06/21 12:17 Consult Physician Routine Consulting Provider: Radha Smith Consult Reason/Comments: colitis Do you want consulting provider notified?: Yes Primary care physician: Svetlana [facility] Course: Diagnoses on discharge: Abdominal pain and rectal bleeding with positive computed tomography scan for area of colitis in the left colon Underlying history of hypertension Underlying history of hyperlipidemia Underlying history of COPD and asthma Underlying history of tobacco abuse Underlying history of anxiety disorder maintained on Valium [facility] course: Lawanda Etienne, is a 65 year old female who presented to [facility] ER with a chief complaints of abdominal pain, nausea or vomiting and rectal bleeding. Her symptoms started within 24 hours of presentation. Actually patient stated that she had a cologuard test recently that was negative. She was evaluated in the emergency room, vital examination on presentation revealed a temperature of 98 pulse 80 respiration 18 blood pressure 140/82 pulse ox 97% on room air, laboratory data revealed a white blood count of 12.8 hemoglobin 14.0 platelet count 372 sodium 138 potassium 4.0 chloride 105 CO2 27 BUN 24 creatinine 0.55 glucose 111 lactic acid 2.2 AST ALT alkaline phosphatase normal. Computed tomography scan of the abdomen and pelvis revealed wall thickening of the left colon on that could represent minimal colitis, otherwise no acute findings, she was started on IV antibiotics and was admitted to medical floor gastroenterology consultation was requested. Past medical history is significant for history of hypertension, history of hyperlipidemia, history of asthma and COPD, history of anxiety disorder and history of nicotine use. On 01/07/2021 patient is alert and oriented 3. Patient reports some improvement with abdominal discomfort. Patient denies any further episodes of bleeding. Patient maintained on Rocephin and Flagyl. White blood cell improving to 9.03. Hgb 10.4. Discussed case with GI team at this time patient is open to having colonoscopy in which she previously declined. Per GI team will discuss case and make decision in regards to possible colonoscopy inpatient vs. outpatient. Maintained on clear liquid diet. At this time patient denies chest pain. Patient denies nausea vomiting or diarrhea. Patient denies any urinary burning or frequency On 01/08/2021. Patient is alert and oriented 3. Patient still having some mild abdominal discomfort and tenderness. Patient denies any nausea vomiting or diarrhea. No further episodes of GI bleeding. Plans for colonoscopy today per GI services. Hemoglobin 10.2. Potassium 3.6 replace per protocol. Patient maintained on IV antibiotics. This time patient denies chest pain or shortness breath. Patient denies nausea vomiting or diarrhea. Patient denies any urinary burning or frequency On 01/09/2021 patient is alert and oriented 3. Hemoglobin 10.7. Denies any further rectal bleeding. Status post colonoscopy with evidence of left colitis, left diverticulosis, polyps with polypectomy and internal hemorrhoids. Patient has been cleared for discharge from GI standpoint. Patient will follow up with GI services outpatient. Discharge on by mouth antibiotics Flagyl and Levaquin Patient Condition at Discharge: Stable Plan - Discharge Summary Discharge Rx Participant: No New Discharge Prescriptions: New metroNIDAZOLE [Flagyl] 500 mg PO Q8HR 7 Days #21 tab Levofloxacin [Levaquin] 500 mg PO DAILY 7 Days #7 tab Nicotine Polacrilex [Nicorette] 2 mg BUCCAL Q4HR PRN gum PRN Reason: Nicotine Cravings Continue Ipratropium/Albuterol Sulfate [Combivent Respimat Inhaler] 1 puff INHALATION RT-QID diazePAM [Valium] 5 mg PO DAILY PRN PRN Reason: Anxiety diphenhydrAMINE HCL [Benadryl] 25 mg PO HS Vitamin C/Biotin [Hair, Skin and Nails] 2 tab PO DAILY Montelukast [Singulair] 10 mg PO HS Ergocalciferol [Vitamin D2 (DRISDOL)] 50,000 unit PO QMONTHLY Lisinopril-Hctz 10-12.5 mg [Zestoretic 10-12.5] 1 tab PO DAILY Ibuprofen [Motrin] 800 mg PO HS Loratadine [Claritin] 10 mg PO DAILY Estradiol Cream [Estrace Cream 0.01%] 1 gm VAGINAL MOTH Discharge Medication List Ergocalciferol [Vitamin D2 (DRISDOL)] 50,000 unit PO QMONTHLY 06/16/20 [History] Ibuprofen [Motrin] 800 mg PO HS 06/16/20 [History] Ipratropium/Albuterol Sulfate [Combivent Respimat Inhaler] 1 puff INHALATION RT- QID 06/16/20 [History] Lisinopril-Hctz 10-12.5 mg [Zestoretic 10-12.5] 1 tab PO DAILY 06/16/20 [History] Montelukast [Singulair] 10 mg PO HS 06/16/20 [History] Vitamin C/Biotin [Hair, Skin and Nails] 2 tab PO DAILY 06/16/20 [History] diazePAM [Valium] 5 mg PO DAILY PRN 06/16/20 [History] diphenhydrAMINE HCL [Benadryl] 25 mg PO HS 06/16/20 [History] Estradiol Cream [Estrace Cream 0.01%] 1 gm VAGINAL MOTH 01/05/21 [History] Loratadine [Claritin] 10 mg PO DAILY 01/05/21 [History] Levofloxacin [Levaquin] 500 mg PO DAILY 7 Days #7 tab 01/09/21 [Rx] Nicotine Polacrilex [Nicorette] 2 mg BUCCAL Q4HR PRN gum 01/09/21 [Rx] metroNIDAZOLE [Flagyl] 500 mg PO Q8HR 7 Days #21 tab 01/09/21 [Rx] Follow up Appointment(s)/Referral(s): Svetlana Mosley MD [Primary Care Provider] - 1-2 days (Appointment scheduled for 01-14-21 at 11:15 am. ) Deangelo Marr MD [STAFF PHYSICIAN] - 2 Weeks (Appointment is scheduled for 01-28-21 at 1:15 pm) Patient Instructions/Handouts: How to Stop Smoking (DC), Rectal Bleeding (DC), Acute Abdominal Pain (DC) Discharge Disposition: HOME SELF-CARE
[2021-01-28] MEDS ORDERED: ERGOCALCIFEROL 1,250 MCG (50,000 IU) CAPSULE PO SCH (09:00)
== END 2021-01-09 13:35 | disposition home or self-care (01) | DRG 386 ==
LOC: EC 15:39 → 6NMEDSUR 19:40 → OBSVTOIN 01-06 20:04
PROVIDERS: ADMIT Internal Medicine; ATTEND Internal Medicine
DX: K51.511 Left sided colitis with rectal bleeding (principal); E87.2 Acidosis; D12.0 Benign neoplasm of cecum; J43.9 Emphysema, unspecified; Z20.822 Contact with and (suspected) exposure to COVID-19; K57.30 Diverticulosis of large intestine without perforation or abscess without bleeding; K64.8 Other hemorrhoids; R04.0 Epistaxis; I10 Essential (primary) hypertension; E78.5 Hyperlipidemia, unspecified; F41.9 Anxiety disorder, unspecified; F17.210 Nicotine dependence, cigarettes, uncomplicated; Z71.6 Tobacco abuse counseling; Z79.1 Long term (current) use of non-steroidal anti-inflammatories (NSAID); Z79.899 Other long term (current) drug therapy; Z90.710 Acquired absence of both cervix and uterus; Z87.42 Personal history of other diseases of the female genital tract; Z87.19 Personal history of other diseases of the digestive system; Z96.612 Presence of left artificial shoulder joint; Z98.890 Other specified postprocedural states; Z88.6 Allergy status to analgesic agent; Z88.5 Allergy status to narcotic agent; Z88.0 Allergy status to penicillin; Z88.8 Allergy status to other drugs, medicaments and biological substances; Z91.018 Allergy to other foods; Z91.048 Other nonmedicinal substance allergy status; Z80.1 Family history of malignant neoplasm of trachea, bronchus and lung
CPT/HCPCS: 36415; 45380; 74177; 80048; 80053; 81001; 83605; 83690; 84484; 85025; 87635; 88305; 93005; 94640; 96361; 96374; 96375; 99285

== ENCOUNTER → 2023-05-10 | Outpatient (CLI) | payer MEDICARE ==
--- NOTE | 2023-05-11 09:04 | MM ---
Reason for Exam: Screening (asymptomatic). Last mammogram was performed 2 year(s) and 9 month(s) ago. Patient History: Menarche at age 10. Patient has no children. Left ovary removed at age 17. Right ovary removed at age 17. Hysterectomy at age 17. Postmenopausal. Currently using Estrogen, for 1 month. Currently using Progesterone, for 1 month. Core Biopsy on the Left side. Excisional Biopsy on the Left side. Excisional Biopsy on the Left side. 06/29/2002, Benign Stereotactic Core Biopsy on the left side. Risk Values: Leatha 5 year model risk: 3.1%. NCI Lifetime model risk: 10.0%. Prior Study Comparison: 03/09/2017 Bilateral Screening Mammogram, [facility]. 03/10/2018 Bilateral Screening Mammogram, [facility]. 07/21/2020 Bilateral Screening Mammogram, [facility]. Tissue Density: The breast tissue is heterogeneously dense. This may lower the sensitivity of mammography. Findings: Analyzed By CAD. There is no suspicious group of microcalcifications or new suspicious mass in either breast. Overall Assessment: Benign, BI-RAD 2 Management: Screening Mammogram of both breasts in 1 year. . Patient should continue monthly self-breast exams. A clinical breast exam by your physician is recommended on an annual basis. This exam should not preclude additional follow-up of suspicious palpable abnormalities. Note on Leatha scores and lifetime risk: 1. A Leatha score greater than 3% is considered moderate risk. If this is the case, consider specialist referral to assess eligibility for a risk reducing agent. 2. If overall lifetime risk for the development of breast cancer is 20% or higher, the patient may qualify for future screening with alternating mammogram and breast MRI. Electronically signed and approved by: Salvador Wyman M.D. Radiologis
== END | disposition home or self-care (01) ==
LOC: RADMAMWWP 15:22
PROVIDERS: ATTEND Family Medicine
DX: Z12.31 Encounter for screening mammogram for malignant neoplasm of breast (principal); Z78.0 Asymptomatic menopausal state
CPT/HCPCS: 77063; 77067

== ENCOUNTER → 2024-05-11 | Outpatient (CLI) | payer MEDICARE ==
--- NOTE | 2024-05-14 10:28 | MM ---
Reason for Exam: Screening (asymptomatic). Last screening mammogram was performed 12 month(s) ago. Patient History: Menarche at age 10. Patient has no children. Left ovary removed at age 17. Right ovary removed at age 17. Hysterectomy at age 17. Postmenopausal. Estrogen for 4 years, 1 month. Progesterone for 4 years, 1 month. Core Biopsy on the Left side. Excisional Biopsy on the Left side. Excisional Biopsy on the Left side. 06/29/2002, Benign Stereotactic Core Biopsy on the left side. Risk Values: Leatha 5 year model risk: 3.1%. NCI Lifetime model risk: 9.5%. Prior Study Comparison: 03/10/2018 Bilateral Screening Mammogram, [facility]. 07/21/2020 Bilateral Screening Mammogram, [facility]. 05/10/2023 Bilateral MG 3D screening mammo w/cad, [facility]. Tissue Density: The breasts are heterogeneously dense, which may obscure small masses. Findings: Analyzed By CAD. Left breast biopsy clip. Right breast: There is no suspicious group of microcalcifications or new suspicious mass. Left breast: Left breast clip near multiple calcifications which have increased from the last 2 prior's. There is no suspicious group of microcalcifications or new suspicious mass. Benign-appearing calcifications left breast. Overall Assessment: Benign, BI-RAD 2 Management: Screening Mammogram of both breasts in [address] [facility] will attempt to contact patient to return for supplemental views and ultrasound if indicated. Patient should continue monthly self-breast exams. A clinical breast exam by your physician is recommended on an annual basis. This exam should not preclude additional follow-up of suspicious palpable abnormalities. Note on Leatha scores and lifetime risk: 1. A Leatha score greater than 3% is considered moderate risk. If this is the case, consider specialist referral to assess eligibility for a risk reducing agent. 2. If overall lifetime risk for the development of breast cancer is 20% or higher, the patient may qualify for future screening with alternating mammogram and breast MRI. [facility], , 05/14/2024 10:25 AM. Electronically signed and approved by: Sharad Sim DO
== END | disposition home or self-care (01) ==
LOC: RADMAMWWP 10:40
PROVIDERS: ATTEND Family Medicine
CPT/HCPCS: 77063; 77067